=== PATIENT | female | born 1960 | race Caucasian/White ===

== ENCOUNTER 2017-02-16 11:41 | Emergency (ER) | payer OTHER ==
[~2017-02-16] VITALS: Ht 157.5 cm; Wt 124.7 kg
[~2017-02-16 11:41] MED LIST: ALBU90OI INH; CODGUAEL PO; Lisinopril2.5 MG; METF500; NEOPOLHCSU LEFTEAR; Zithromax250 MG PO
[2017-02-16] MEDS ORDERED: IBUP600 PO (12:46)
[2017-02-16] MEDS ORDERED: Norco 5-325 Ta1 EACH PO (12:46)
== END 2017-02-16 12:53 | disposition home or self-care (01) ==
LOC: ER 11:41
DX: M10.9 Gout, unspecified (principal); F17.200 Nicotine dependence, unspecified, uncomplicated; E11.9 Type 2 diabetes mellitus without complications; I10 Essential (primary) hypertension; J44.9 Chronic obstructive pulmonary disease, unspecified; Z91.048 Other nonmedicinal substance allergy status
CPT/HCPCS: 29125; 73130; 99283

== ENCOUNTER → 2017-06-23 | Outpatient (CLI) | payer MEDICARE, OTHER ==
[~2017-06-23] MED LIST changes: +IBUP600 PO; +Norco 5-325 Ta1 EACH PO
[2017-06-23 19:16] LABS: Alanine Aminotransfer (ALT/SGP 25 U/L (12-78); Albumin, Blood 3.4 g/dL (3.4-5.0); Alk Phos 80 U/L (50-136); Anion Gap 5 mmol/L (6-16); Aspartate Aminotrans (AST/SGOT 17 U/L (12-37); Bilirubin, Total 0.4 mg/dL (0.1-1.0); Blood Urea Nitrogen 13 mg/dL (8-24); Bun/Creatinine Ratio 19.3 (12.0-20.0); CO2, Blood 28 mmol/L (21-32); Calcium, Blood 8.9 mg/dL (8.5-10.1); Chloride, Blood 109 mmol/L (98-108); Creatinine, Blood 0.68 mg/dL (0.40-1.00); Globulin, Blood 3.3 g/dL (2.2-4.0); Glomerular Filtration Rate >60 (60-); Glucose, Blood 240 mg/dL (70-99); Potassium, Blood 4.3 mmol/L (3.5-5.5); Sodium, Blood 142 mmol/L (136-145); Total Protein, Blood 6.7 g/dL (6.4-8.2)
[2017-06-25 10:36] LABS: Albumin 3.3 g/dL (3.5-5.0); Albumin 50.4 % (45.0-80.0); Protein, Total 6.5 g/dL (6.2-8.2)
== END | disposition home or self-care (01) ==
LOC: LAB SHORT 12:21 → LAB 12:21
PROVIDERS: Nurse Practitioner Adult Health
DX: E11.9 Type 2 diabetes mellitus without complications (principal); E88.09 Other disorders of plasma-protein metabolism, not elsewhere classified; I10 Essential (primary) hypertension
CPT/HCPCS: 80053; 82043; 84165; 84166

== ENCOUNTER 2018-05-19 11:53 | Emergency (ER) | payer MEDICARE ==
[~2018-05-19] VITALS: Ht 157.5 cm; Wt 122.0 kg
[2018-05-19] MEDS ORDERED: Ultram50 MG PO (13:12)
== END 2018-05-19 13:54 | disposition home or self-care (01) ==
LOC: ER 11:53
DX: S42.211A Unspecified displaced fracture of surgical neck of right humerus, initial encounter for closed fracture (principal); S42.251A Displaced fracture of greater tuberosity of right humerus, initial encounter for closed fracture; E11.9 Type 2 diabetes mellitus without complications; I10 Essential (primary) hypertension; J44.9 Chronic obstructive pulmonary disease, unspecified; F17.210 Nicotine dependence, cigarettes, uncomplicated; Z79.899 Other long term (current) drug therapy; Z79.84 Long term (current) use of oral hypoglycemic drugs; W01.0XXA Fall on same level from slipping, tripping and stumbling without subsequent striking against object, initial encounter
CPT/HCPCS: 73030; 73060; 99283-25

== ENCOUNTER 2018-05-28 19:38 | Emergency (ER) | payer MEDICARE ==
[~2018-05-28] VITALS: Ht 157.5 cm; Wt 122.5 kg
[~2018-05-28 19:38] MED LIST changes: +Ultram50 MG PO
[2018-05-28 20:08] LABS: BASOPHILS ABSOLUTE AUTO 0.07 K/mm3 (0.00-0.23); BASOPHILS PERCENT AUTO 1 % (0-2); EOSINOPHILS ABSOLUTE AUTO 0.22 K/mm3 (0.00-0.68); EOSINOPHILS PERCENT AUTO 2 % (0-6); Hemoglobin 13.5 g/dL (11.5-16.0); IMMATURE GRAN ABSOLUTE AUTO 0.01 K/mm3 (0.00-0.10); IMMATURE GRAN PERCENT AUTO 0 % (0-1); LYMPHOCYTES ABSOLUTE AUTO 2.09 K/mm3 (0.84-5.20); LYMPHOCYTES PERCENT AUTO 20 % (21-46); MONOCYTES ABSOLUTE AUTO 0.65 K/mm3 (0.16-1.47); MONOCYTES PERCENT AUTO 6 % (4-13); Mean Corpuscular HGB Conc 31.4 g/dL (31.5-36.5); Mean Corpuscular Volume 89 fL (80-100); Mean Platelet Volume 11.1 fL (9.1-12.4); NEUTROPHILS ABSOLUTE AUTO 7.68 K/mm3 (1.96-9.15); NEUTROPHILS PERCENT AUTO 72 % (41-73); Platelet Count 352 K/mm3 (150-400); RDW Coefficient Variation 13.2 % (11.7-14.2); RDW Standard Deviation 43.3 fL (35.1-46.3); Red Blood Cell Count 4.82 M/mm3 (3.80-5.20); White Blood Cell Count 10.72 K/mm3 (4.00-11.30)
[2018-05-28 20:29] LABS: Alanine Aminotransfer (ALT/SGP 30 U/L (12-78); Albumin/Globulin Ratio 0.7 (0.8-1.8); Alk Phos 103 U/L (50-136); Anion Gap 10 mmol/L (6-16); Aspartate Aminotrans (AST/SGOT 18 U/L (12-37); Bilirubin, Total 0.3 mg/dL (0.1-1.0); Blood Urea Nitrogen 5 mg/dL (8-24); Bun/Creatinine Ratio 11.5 (12.0-20.0); CO2, Blood 28 mmol/L (21-32); Calcium, Blood 9.2 mg/dL (8.5-10.1); Chloride, Blood 101 mmol/L (98-108); Creatinine, Blood 0.44 mg/dL (0.40-1.00); Globulin, Blood 4.5 g/dL (2.2-4.0); Glomerular Filtration Rate >60 (60-); Glucose, Blood 355 mg/dL (70-99); Potassium, Blood 4.4 mmol/L (3.5-5.5); Sodium, Blood 139 mmol/L (136-145); Total Protein, Blood 7.5 g/dL (6.4-8.2); Troponin I <0.015 ng/mL (0.000-0.040)
[2018-05-28] MEDS ORDERED: Metformin HCl1000 MG PO (20:29)
[2018-05-28] MEDS ORDERED: Zestril40 MG PO (20:29)
[2018-05-28] MEDS ORDERED: GLIP5 PO (20:31)
[2018-05-28] MEDS ORDERED: BUSP10 PO (20:31)
[2018-05-28] MEDS ORDERED: BUDE10.22 INH (20:31)
[2018-05-28] MEDS ORDERED: TIOT18 INH (20:31)
[2018-05-28] MEDS ORDERED: Zocor20 MG PO (20:31)
[2018-05-28] MEDS ORDERED: Isosorbide Mono30 MG PO (20:33)
[2018-05-28] MEDS ORDERED: HYDCHL25 PO (20:33)
== END 2018-05-28 22:56 | disposition home or self-care (01) ==
LOC: ER 19:38
PROVIDERS: Physician Assistant
DX: S20.211A Contusion of right front wall of thorax, initial encounter (principal); B37.2 Candidiasis of skin and nail; W19.XXXA Unspecified fall, initial encounter; Z79.899 Other long term (current) drug therapy; Z79.84 Long term (current) use of oral hypoglycemic drugs; E11.9 Type 2 diabetes mellitus without complications; I10 Essential (primary) hypertension; J44.9 Chronic obstructive pulmonary disease, unspecified; F17.210 Nicotine dependence, cigarettes, uncomplicated
CPT/HCPCS: 71046; 80053; 84484; 85025; 93005; 93010; 96374; 99285-25; J1885

== ENCOUNTER 2018-09-10 21:47 | Inpatient (IN) | payer MEDICARE ==
[~2018-09-10] VITALS: Ht 157.5 cm; Wt 95.2 kg
[~2018-09-10 21:47] MED LIST changes: +BUDE10.22 INH; +BUSP10 PO; +GLIP5 PO; +HYDCHL25 PO; +Isosorbide Mono30 MG PO; +Metformin HCl1000 MG PO; +TIOT18 INH; +Zestril40 MG PO; +Zocor20 MG PO
[2018-09-10 22:57] LABS: Hematocrit 25.6 % (33.0-51.0); Hemoglobin 7.7 g/dL (11.5-16.0); Mean Corpuscular HGB 24.5 pg (26.0-34.0); Mean Corpuscular HGB Conc 30.1 g/dL (31.5-36.5); Mean Corpuscular Volume 82 fL (80-100); Mean Platelet Volume 12.6 fL (9.1-12.4); NRBC ABSOLUTE 0.32 K/mm3 (0.00-0.02); NRBC Auto 0.7 /100 WBC (0.0-0.2); Platelet Count 384 K/mm3 (150-400); RDW Coefficient Variation 18.6 % (11.7-14.2); RDW Standard Deviation 53.2 fL (35.1-46.3); Red Blood Cell Count 3.14 M/mm3 (3.80-5.20); White Blood Cell Count 46.21 K/mm3 (4.00-11.30)
[2018-09-10 23:01] LABS: BAND PERCENT MAN 17 % (0-8); BASOPHILS PERCENT MAN 0 % (0-2); EOSINOPHILS PERCENT MAN 0 % (0-6); LYMPHOCYTES ABSOLUTE MAN 1.38 K/mm3 (0.84-5.20); LYMPHOCYTES PERCENT MAN 3 % (21-46); METAMYELOCYTE ABSOLUTE MAN 0.92 K/mm3 (0.00-0.00); METAMYELOCYTE PERCENT MAN 2 % (0-0); MONOCYTES ABSOLUTE MAN 0.92 K/mm3 (0.16-1.47); MONOCYTES PERCENT MAN 2 % (4-13); NEUTROPHILS ABSOLUTE MAN 42.97 K/mm3 (1.96-9.15); SEG NEUTROPHILS PERCENT MAN 76 % (41-73); TOTAL CELLS COUNTED 100
[2018-09-10 23:08] LABS: Alanine Aminotransfer (ALT/SGP 14 U/L (12-78); Albumin, Blood 1.8 g/dL (3.4-5.0); Albumin/Globulin Ratio 0.4 (0.8-1.8); Alk Phos 189 U/L (50-136); Anion Gap 13 mmol/L (6-16); Aspartate Aminotrans (AST/SGOT 50 U/L (12-37); Bilirubin, Total 6.6 mg/dL (0.1-1.0); Blood Urea Nitrogen 36 mg/dL (8-24); Bun/Creatinine Ratio 53.3 (12.0-20.0); CO2, Blood 23 mmol/L (21-32); Calcium, Blood 8.9 mg/dL (8.5-10.1); Chloride, Blood 86 mmol/L (98-108); Creatinine, Blood 0.68 mg/dL (0.40-1.00); Glomerular Filtration Rate >60 (60-); Glucose, Blood 783 mg/dL (70-99); Potassium, Blood 4.4 mmol/L (3.5-5.5); Sodium, Blood 122 mmol/L (136-145); Total Protein, Blood 6.8 g/dL (6.4-8.2)
[2018-09-11 00:33] LABS: Source, Urine Clean Catch
[2018-09-11 00:38] LABS: Bilirubin, Urine Neg (Neg); Blood, Urine 4+ (Neg); Glucose Qualitative, Urine 4+ (Neg); Ketones, Urine 1+ (Neg); Leukocyte Esterase, Urine Neg (Neg); Nitrite, Urine Neg (Neg); Protein, Urine 2+ (Neg); Specific Gravity, Urine 1.005 (1.003-1.022); Urobilinogen, Urine 2+ (Normal)
[2018-09-11 00:40] LABS: Appearance, Urine Clear (Clear); Color, Urine Yellow (P-Yellow)
[2018-09-11 00:59] LABS: Bacteria Rare /hpf; Red Blood Cells, Urine 0-2 /hpf (0-2); Squamous Epithelial Cells Few /hpf (Few); White Blood Cells, Urine Not Seen /hpf (0-5); Yeast/Fungi Urine Mod /hpf
[2018-09-11 01:25] LABS: Glucose, Blood 752 mg/dL (70-99)
[2018-09-11 04:05] LABS: Glucose, Blood 577 mg/dL (70-99)
[2018-09-11 09:11] LABS: International Normalized Ratio 1.22; Prothrombin Time Results 12.7 Sec (9.7-11.5)
[2018-09-11 09:16] LABS: Glucose, Blood 416 mg/dL (70-99)
[2018-09-11 09:20] LABS: Alanine Aminotransfer (ALT/SGP 15 U/L (12-78); Albumin, Blood 2.1 g/dL (3.4-5.0); Albumin/Globulin Ratio 0.5 (0.8-1.8); Alk Phos 163 U/L (50-136); Aspartate Aminotrans (AST/SGOT 74 U/L (12-37); Bilirubin, Total 11.5 mg/dL (0.1-1.0); Blood Urea Nitrogen 37 mg/dL (8-24); Bun/Creatinine Ratio 67.6 (12.0-20.0); CO2, Blood 27 mmol/L (21-32); Calcium, Blood 8.7 mg/dL (8.5-10.1); Chloride, Blood 99 mmol/L (98-108); Creatinine, Blood 0.55 mg/dL (0.40-1.00); Globulin, Blood 4.3 g/dL (2.2-4.0); Glomerular Filtration Rate >60 (60-); Glucose, Blood 402 mg/dL (70-99); Potassium, Blood 3.8 mmol/L (3.5-5.5); Total Protein, Blood 6.4 g/dL (6.4-8.2)
[2018-09-11 09:21] LABS: Anion Gap 7 mmol/L (6-16)
[2018-09-11 09:22] LABS: Sodium, Blood 133 mmol/L (136-145)
[2018-09-11 09:32] LABS: Hematocrit 19.9 % (33.0-51.0); Hemoglobin 6.4 g/dL (11.5-16.0); Mean Corpuscular HGB 26.7 pg (26.0-34.0); Mean Corpuscular HGB Conc 32.2 g/dL (31.5-36.5); Mean Corpuscular Volume 83 fL (80-100); NRBC ABSOLUTE 0.29 K/mm3 (0.00-0.02); NRBC Auto 0.7 /100 WBC (0.0-0.2); RDW Coefficient Variation 18.2 % (11.7-14.2); RDW Standard Deviation 52.8 fL (35.1-46.3); White Blood Cell Count 40.05 K/mm3 (4.00-11.30)
[2018-09-11 09:58] LABS: Mean Platelet Volume 12.4 fL (9.1-12.4); Platelet Count 322 K/mm3 (150-400)
[2018-09-11 10:06] LABS: Percent Saturation 116.4 % (15.0-50.0)
--- NOTE | 2018-09-11 10:30 | NUR ---
PT NEW ADMIT FROM ED. ON BIPAP WITH 5L BLEED IN, SATTING MID90S. NSR ON TELE. INSULIN GTT AT 8 UNITS/HR. BLOOD SUGARS IN 300S AT THIS TIME. PT IS ALERT AND ORIENTED, COOPERATIVE. AMBULATORY WITH ONE ASSIST. NO FURTHER NEEDS AT THIS TIME.
--- NOTE | 2018-09-11 11:44 | NUR ---
DR TABOR NOTIFIED OF PT'S RECENT LAB RESULTS. ALSO MADE AWARE OF BLOOD IN URINE. ALSO NOTIFIED THAT PT HAS NOT SUBMITTED MEDS TO PHARMACY IN 18 MONTHS AND THAT SHE STATES SHE HASN'T TAKEN REGULAR MEDS SINCE APRIL BECAUSE OF COST. PT TOOK 10 MINUTE BREAK FROM BIPAP AND WAS ON NC AT 5L. STARTED TO DESAT INTO MID 80S WITH THIS SO SWITCHED BACK TO MASK. PT C/O DRY MOUTH. DISCUSSED WITH DR TABOR WHO ORDERED DIET. RN AT BEDSIDE GETTING HEALTH HISTORY AT THIS TIME.
--- NOTE | 2018-09-11 12:33 | NUR ---
ECHOCARDIOGRAM COMPLETE
[2018-09-11 14:30] LABS: Source, Urine Clean Catch
[2018-09-11 14:42] LABS: Appearance, Urine Hazy (Clear); Blood, Urine 5+ (Neg); Color, Urine Amber (P-Yellow); Glucose Qualitative, Urine 3+ (Neg); Ketones, Urine 1+ (Neg); Leukocyte Esterase, Urine 1+ (Neg); Nitrite, Urine Neg (Neg); Protein, Urine 4+ (Neg); Urobilinogen, Urine 4+ (Normal)
--- NOTE | 2018-09-11 14:45 | NUR ---
REPORT GIVEN TO NABOR COWART. PT SITTING IN BED ON 5L, SATTING MID 90S. TOLERATED LUNCH AND LANTUS PER ORDERS. SEE LABS. NS AT 125/HR. HR SINUS TACH 101. NO FURTHER NEEDS OR CONCERNS AT THIS TIME.
[2018-09-11 14:46] LABS: Anion Gap 11 mmol/L (6-16); Blood Urea Nitrogen 38 mg/dL (8-24); Bun/Creatinine Ratio 72.2 (12.0-20.0); CO2, Blood 23 mmol/L (21-32); Calcium, Blood 8.8 mg/dL (8.5-10.1); Chloride, Blood 101 mmol/L (98-108); Creatinine, Blood 0.53 mg/dL (0.40-1.00); Glomerular Filtration Rate >60 (60-); Glucose, Blood 328 mg/dL (70-99); Potassium, Blood 4.1 mmol/L (3.5-5.5); Sodium, Blood 135 mmol/L (136-145)
[2018-09-11 14:47] LABS: Bilirubin, Urine 3+ (Neg)
[2018-09-11 14:49] LABS: Bacteria Mod /hpf; Mucus Heavy (0-Heavy); Yeast/Fungi Urine Few /hpf
[2018-09-11 14:50] LABS: Granular Casts 0-2 /lpf (0); Hyaline Casts 0-2 /lpf (0-2); Renal Epithelial Few /hpf (0-Rare); Squamous Epithelial Cells Many /hpf (Few); Transitional Epithelial Cells Many /hpf (0-Rare)
--- NOTE | 2018-09-11 14:54 | NUR ---
ASSUMED CARE: RECEIVED REPORT FROM SHANNAN DE LEÓN RN AT THIS TIME. NO DISTRESS NOTED WITH PT. PT IS CURRENTLY ON BIPAP WITH A NASEL MASK. PT STATES DESIRE TO SLEEP. REQUESTS TO BE LEFT ALONE. WILL CONTINUE TO MONITOR AND ASSESS FURTHER.
[2018-09-11 15:31] LABS: Adenovirus Not Detected (NOT DETECT); Bordetella pertussis Not Detected (NOT DETECT); Chlamydophila pneumoniae Not Detected (NOT DETECT); Coronavirus 229E Not Detected (NOT DETECT); Coronavirus HKU1 Not Detected (NOT DETECT); Coronavirus NL63 Not Detected (NOT DETECT); Coronavirus OC43 Not Detected (NOT DETECT); Human Metapneumovirus Not Detected (NOT DETECT); Human Rhinovirus/Enterovirus Not Detected (NOT DETECT); Influenza A Not Detected (NOT DETECT); Influenza A/2009-H1 Not Detected (NOT DETECT); Influenza A/H1 Not Detected (NOT DETECT); Influenza A/H3 Not Detected (NOT DETECT); Influenza B Not Detected (NOT DETECT); Mycoplasma pneumoniae Not Detected (NOT DETECT); Parainfluenza Virus 1 Not Detected (NOT DETECT); Parainfluenza Virus 2 Not Detected (NOT DETECT); Parainfluenza Virus 3 Not Detected (NOT DETECT); Parainfluenza Virus 4 Not Detected (NOT DETECT); Respiratory Syncytial Virus Not Detected (NOT DETECT)
--- NOTE | 2018-09-11 17:02 | NUR ---
ELAVATED GLUCOSE LEVEL: CALLED AND NOTIFIED DR TABOR OF PT BLOOD SUGAR OF 458 AND COVERING PER ORDERS. RECEIVED NEW ORDER TO ADMINISTER 20 UNITS OF LANSUS NOW. ALSO RECEIVED ORDERS FOR PT NICOTINE CRAVINGS.
--- NOTE | 2018-09-11 18:50 | NUR ---
SHIFT SUMMARY: NO ACUTE DISTRESS NOTED SINCE ASSUMING CARE. PT HAS BEEN UP TO BSC SEVERAL TIMES WITH APPROX 200ML OUT EACH OF DARK CORNELIO/ORANGE COLOR URINE THAT APPEARS TO BE CLOUDY. SOME INCONTINENCE NOTED, ATTENDS IN PLACE. PT HAS BEEN WEARING HER BIPAP MOST OF THE TIME SINCE ASSUMING CARE, SOME SATURATIONS IN THE MID 80'S AT TIMES WITH AMBULATION OR WHEN NOT WEARING HER BIPAP, BUT PT TOLELRATED WELL AND SATS CAME UP QUICKLY. PT STATES FEELING FATIGUED, BUT DENIES ANY LIGHTHEADEDNESS OR DIZZYNESS. WILL CONTINUE TO MONIOR AND REPORT TO ONCOMING RN.
[2018-09-11 21:18] LABS: Anion Gap 10 mmol/L (6-16); Blood Urea Nitrogen 48 mg/dL (8-24); Bun/Creatinine Ratio 72.8 (12.0-20.0); CO2, Blood 24 mmol/L (21-32); Calcium, Blood 8.3 mg/dL (8.5-10.1); Chloride, Blood 98 mmol/L (98-108); Creatinine, Blood 0.66 mg/dL (0.40-1.00); Glomerular Filtration Rate >60 (60-); Glucose, Blood 554 mg/dL (70-99); Sodium, Blood 132 mmol/L (136-145)
--- NOTE | 2018-09-12 01:39 | NUR ---
START OF SHIFT: PT DROWSY MOST OF SHIFT GETTING UP TO USE THE BSC FREQUENTLY. PT WITH PERIODS WHERE PT IS STOIC AND DELAYED IN ANSWERING BUT WILL BECOME MORE INTERACTIVE AND ORIENTED WHEN STIMULATED TO. PT CONTINUES TO HAVE CORNELIO/ORANGE/RED URINE WITH ABOUT 100cc OUT EACH TIME. PT WITH INCONTINENCE X1 FILLING MOST OF HER ATTENDS. PT REQUESTING TO WEAR HER BIPAP EACH TIME BACK INTO BED. PT PUSHES OFF HER MASK IN HER SLEEP AND WILL DESAT INTO THE 70'S. SATS QUICKLY RETURNS INTO THE 90'S ONCE BIPAP BACK ON. BLOOD GLUCOSE: AT BLOOD GLUCOSE CHECK BG 554. CALL TO DR. MENJIVAR WITH NEW ORDER FOR ONE-TIME DOSE HUMALOG 22u AND NEW ORDER FOR HUMALOG 7u IN ADDITION TO HSS BEFORE EACH MEAL.
[2018-09-12 02:32] LABS: Anion Gap 5 mmol/L (6-16); Blood Urea Nitrogen 49 mg/dL (8-24); Bun/Creatinine Ratio 74.6 (12.0-20.0); CO2, Blood 25 mmol/L (21-32); Calcium, Blood 8.2 mg/dL (8.5-10.1); Chloride, Blood 101 mmol/L (98-108); Creatinine, Blood 0.66 mg/dL (0.40-1.00); Glomerular Filtration Rate >60 (60-); Glucose, Blood 484 mg/dL (70-99); Potassium, Blood 4.3 mmol/L (3.5-5.5); Sodium, Blood 131 mmol/L (136-145)
[2018-09-12 02:34] LABS: Alanine Aminotransfer (ALT/SGP 21 U/L (12-78); Albumin, Blood 1.8 g/dL (3.4-5.0); Albumin/Globulin Ratio 0.4 (0.8-1.8); Alk Phos 170 U/L (50-136); Anion Gap 6 mmol/L (6-16); Aspartate Aminotrans (AST/SGOT 118 U/L (12-37); Bilirubin, Total 7.1 mg/dL (0.1-1.0); Blood Urea Nitrogen 48 mg/dL (8-24); Bun/Creatinine Ratio 69.1 (12.0-20.0); CO2, Blood 26 mmol/L (21-32); Calcium, Blood 8.2 mg/dL (8.5-10.1); Chloride, Blood 101 mmol/L (98-108); Globulin, Blood 4.5 g/dL (2.2-4.0); Glomerular Filtration Rate >60 (60-); Glucose, Blood 478 mg/dL (70-99); Potassium, Blood 4.3 mmol/L (3.5-5.5); Sodium, Blood 133 mmol/L (136-145); Total Protein, Blood 6.3 g/dL (6.4-8.2)
[2018-09-12 02:38] LABS: Mean Corpuscular HGB 26.5 pg (26.0-34.0); Mean Corpuscular HGB Conc 32.3 g/dL (31.5-36.5); Mean Corpuscular Volume 82 fL (80-100); NRBC ABSOLUTE 0.36 K/mm3 (0.00-0.02); NRBC Auto 0.7 /100 WBC (0.0-0.2); Platelet Count 336 K/mm3 (150-400); RDW Coefficient Variation 19.4 % (11.7-14.2); RDW Standard Deviation 53.6 fL (35.1-46.3); Red Blood Cell Count 1.96 M/mm3 (3.80-5.20)
[2018-09-12 02:40] LABS: Hematocrit 16.1 % (33.0-51.0); Hemoglobin 5.2 g/dL (11.5-16.0); White Blood Cell Count 53.16 K/mm3 (4.00-11.30)
[2018-09-12 03:10] LABS: BAND PERCENT MAN 13 % (0-8); BASOPHILS PERCENT MAN 0 % (0-2); EOSINOPHILS PERCENT MAN 0 % (0-6); LYMPHOCYTES ABSOLUTE MAN 5.31 K/mm3 (0.84-5.20); LYMPHOCYTES PERCENT MAN 10 % (21-46); METAMYELOCYTE ABSOLUTE MAN 1.06 K/mm3 (0.00-0.00); METAMYELOCYTE PERCENT MAN 2 % (0-0); MONOCYTES ABSOLUTE MAN 0.53 K/mm3 (0.16-1.47); MONOCYTES PERCENT MAN 1 % (4-13); MYELOCYTE ABSOLUTE MAN 0.53 K/mm3 (0.00-0.00); MYELOCYTE PERCENT MAN 1 % (0-0); NEUTROPHILS ABSOLUTE MAN 45.71 K/mm3 (1.96-9.15); SEG NEUTROPHILS PERCENT MAN 73 % (41-73); TOTAL CELLS COUNTED 100
--- NOTE | 2018-09-12 06:37 | NUR ---
END OF SHIFT: PT WITH CRITICAL LABS CALLED TO DR. SANZ, SEE NOTE. PT AWAKENED AND HAD TO HAVE ALL IV ACCESS REPLACED POSSIBLEY R/T PT ROLLING AND THRASHING T/O NOC IN BED. PT AWAKE AND VERY PLEASANT DURING IV INSERT PROCESS AND HAS REMAINED AWAKE SINCE THEN. PT UP TO BSC SEVERAL TIMES T/O NOC AND IS CURRENLTY SITTING UP IN A RECLINER CHAIR. PT FOLLOWING DIRECTIONS WELL AND USING CALL LIGHT.
[2018-09-12 07:06] LABS: HBSAG SCREEN Negative (Negative); HEP B CORE AB, TOT Negative (Negative); HEP C VIRUS AB <0.1 (0.0-0.9)
[2018-09-12 08:35] LABS: Anion Gap 10 mmol/L (6-16); Blood Urea Nitrogen 46 mg/dL (8-24); Bun/Creatinine Ratio 72.7 (12.0-20.0); CO2, Blood 21 mmol/L (21-32); Calcium, Blood 8.1 mg/dL (8.5-10.1); Chloride, Blood 100 mmol/L (98-108); Creatinine, Blood 0.63 mg/dL (0.40-1.00); Glomerular Filtration Rate >60 (60-); Glucose, Blood 489 mg/dL (70-99); Potassium, Blood 4.8 mmol/L (3.5-5.5); Sodium, Blood 131 mmol/L (136-145)
--- NOTE | 2018-09-12 10:19 | NUR ---
ELAVATED GLUCOSE & HGB: PT BLOOD SUGAR WAS ELAVATED TO 458 THIS MORNING CALLED AND NOTIFIED DR TABOR OF LAB VALUE AND MEDICATIONS GIVEN PRIOR TO CALLING. RECEIVED NEW ORDERS. UPDATED ON PT RECEIVING 1 UNIT OF BLOOD FOR A CRITICAL HGB OF 5.2 AND RECEIVED NEW ORDERS FOR A REPEAT H&H. WILL CONTINUE TO MONITOR AND ASSESS FURTHER.
[2018-09-12 11:08] LABS: Hematocrit 20.3 % (33.0-51.0); Hemoglobin 6.5 g/dL (11.5-16.0)
[2018-09-12 12:40] LABS: Glucose (ISTAT POC) 557 mg/dL (70-99)
--- NOTE | 2018-09-12 12:42 | NUR ---
HIGH GLUCOSE: PT BLOOD SUGAR NOTED AT 557. CALLED AND LEFT MESSAGE FOR DR TABOR.
[2018-09-12 13:02] LABS: Glucose, Blood 576 mg/dL (70-99)
[2018-09-12 13:07] LABS: Alanine Aminotransfer (ALT/SGP 21 U/L (12-78); Albumin, Blood 1.7 g/dL (3.4-5.0); Albumin/Globulin Ratio 0.4 (0.8-1.8); Alk Phos 183 U/L (50-136); Anion Gap 11 mmol/L (6-16); Aspartate Aminotrans (AST/SGOT 116 U/L (12-37); Bilirubin, Total 5.1 mg/dL (0.1-1.0); Blood Urea Nitrogen 51 mg/dL (8-24); Bun/Creatinine Ratio 71.1 (12.0-20.0); CO2, Blood 22 mmol/L (21-32); Calcium, Blood 7.8 mg/dL (8.5-10.1); Chloride, Blood 99 mmol/L (98-108); Creatinine, Blood 0.72 mg/dL (0.40-1.00); Globulin, Blood 4.3 g/dL (2.2-4.0); Glomerular Filtration Rate >60 (60-); Glucose, Blood 568 mg/dL (70-99); Potassium, Blood 4.1 mmol/L (3.5-5.5); Sodium, Blood 132 mmol/L (136-145)
--- NOTE | 2018-09-12 14:00 | NUR ---
CRITICAL CALL BACK: CALLED DR TABOR ONCE AGAIN REGUARDING ELAVATED BLOOD SUGAR D/T NOT RECEIVING A CALL BACK. DR TABOR HAD ALREADY PLACED NEW ORDERS IN THE COMPUTER. ADMINISTERED NEW ORDERS OF HUMOLOG & LANTUS.
--- NOTE | 2018-09-12 14:12 | NUR ---
FAMILY: UPDATED SISTER AT THIS TIME. SISTER REPORTS PT C/O TAIL BONE AREA PAIN FOR THE LAST 3 YEARS.
[2018-09-12 15:25] LABS: Glucose (ISTAT POC) 536 mg/dL (70-99)
--- NOTE | 2018-09-12 17:00 | NUR ---
UPDATE: CALLED DR TABOR TO DISCUSS PLAN OF CARE FOR THE NIGHT. REPORTED TRENDING BLOOD SUGARS AND LACK OF REDUCTION IN GLUCOSE LEVELS WITH ALL THE INSULIN GIVEN. RECEIVED ORDER TO START IV INSULIN DRIP. CHEM BG'S WILL BE CHECKED Q1HR. DISCUSSED PT LOW TEMP AND LACK OF BEING ABLE TO TOLLERATE THE INCREASED HEAT IN THE ROOM. NO NEW ORDERS WILL CONTINUE TO MONITOR. ORDERS TO DRAW LABS TO CHECK THYROID HORMONES. WILL CONTINUE TO MONITOR AND ASSESS FUTHER.
[2018-09-12 18:30] LABS: Glucose (ISTAT POC) 475 mg/dL (70-99)
--- NOTE | 2018-09-12 18:45 | NUR ---
SHIFT SUMMARY: GLUCOSE: BLOOD SUGARS HAVE BEEN ELAVATED T/O THE DAY CREEPING UP SLOWLY ALTHOUGH RECEIVING APPROX 75 UNITS LANTUS, AND APPROX 90 UNITS OF HUMALOG (SEE MAR FOR EXACT UNITS GIVEN) AND BLOOD SUGARS HAVE NOT BEEN BELOW 400, BUT HAVE BEEN HIGH 557 EVEN AFTER RECEIVING MOST OF THE INSULIN. INSULIN DRIP STARTED AT 1820 WITH A RATE OF 5 UNITS PER HOUR. BLOOD: PT RECEIVED A UNIT OF PRBC THIS SHIFT D/T HGB ONLY COMING UP TO 6.5 @ 1023. CURRENTLY AWAITING REPEAT H&H DRAWN AFTER 1 UNIT OF BLOOD. PT TEMP HAS BEEN LOW 95 DEGREES TURNED HEAT UP IN THE ROOM, BUT PT FELT VERY HOT AND COULD NOT HANDLE THE HEAT BEING UP IN THE ROOM OR A BLANKET ON. AFTER 1 UNIT OF BLOOD TEMP WAS NOTED TO COME UP TO 97.6.
[2018-09-12 18:53] LABS: Glucose, Blood 495 mg/dL (70-99)
[2018-09-12 19:08] LABS: Thyroxine (T4) 4.6 ug/dL (4.8-13.9)
[2018-09-12 19:18] LABS: Triiodothyronine, Free <0.50 pg/mL (2.18-3.98)
--- NOTE | 2018-09-12 19:25 | NUR ---
H&H: HGB CAME BACK AT 11.4, REDRAWN ORDERED TO VERAFY LABS AFTER ONLY RECEIVING ONE UNIT OF BLOOD AND PREVIOUSLY BEING NOTED AT 6.5
--- NOTE | 2018-09-12 19:26 | NUR ---
FAMILY: SISTER CALLED AND NOTIFIED THIS RN. THAT THE DR DID NOT CALL TO UPDATE HER ON HER SISTER AND THAT SHE WAS UNABLE TO GET SOME QUESTIONS ANSWERED. STATES CONCERNS WITH THE LIVER. THIS RN ATTEMPTED TO EDUCATE SISTER ON LIVER LAB LEVELS STARTING TO TREND IN THE RIGHT DIRECTION. UPDATED ON CURRENT PLAN OF CARE AND LABS BEING DRAWN.
[2018-09-12 19:44] LABS: Hematocrit 21.2 % (33.0-51.0)
[2018-09-12 19:45] LABS: Hemoglobin 7.1 g/dL (11.5-16.0)
--- NOTE | 2018-09-12 21:55 | NUR ---
CBG IS 444, INSULIN TITRATED TO 5UNITS/HR. WILL CONTINUE TO MONITOR,
--- NOTE | 2018-09-12 22:15 | NUR ---
ASSISTED TO BSC AND BACK TO BED, TOLERATED WELL. 200ML CLEAR CONCENTRATED CORNELIO URINE NOTED. WILL CONTINUE TO MONITOR.
--- NOTE | 2018-09-13 02:02 | NUR ---
PT CALLED OUT STATING THAT SHE NEEDED TO GO TO THE BATHROOM. AFTER NURSING PREPARED BSC, PT STATES THAT SHE HAD ALREADY VOIDED IN HER ATTENDS. PERICARE PROVIDED, AND NEW ATTENDS PLACED, TOLERATED WELL. WILL CONTINUE TO MONITOR.
[2018-09-13 04:17] LABS: Free Thyroxine 0.65 ng/dL (0.70-1.60)
[2018-09-13 04:20] LABS: Thyroid Stimulating Hormone 2.91 uIU/mL (0.360-4.800); Triiodothyronine, Free 0.59 pg/mL (2.18-3.98)
[2018-09-13 05:43] LABS: Stool Occult Blood Guaiac 1 Neg (Neg)
[2018-09-13 08:56] LABS: Alanine Aminotransfer (ALT/SGP 17 U/L (12-78); Albumin, Blood 1.6 g/dL (3.4-5.0); Albumin/Globulin Ratio 0.4 (0.8-1.8); Alk Phos 171 U/L (50-136); Anion Gap 8 mmol/L (6-16); Aspartate Aminotrans (AST/SGOT 52 U/L (12-37); Bilirubin, Total 2.4 mg/dL (0.1-1.0); Blood Urea Nitrogen 33 mg/dL (8-24); Bun/Creatinine Ratio 55.9 (12.0-20.0); CO2, Blood 25 mmol/L (21-32); Calcium, Blood 8.1 mg/dL (8.5-10.1); Chloride, Blood 104 mmol/L (98-108); Creatinine, Blood 0.59 mg/dL (0.40-1.00); Glomerular Filtration Rate >60 (60-); Glucose, Blood 228 mg/dL (70-99); Potassium, Blood 3.5 mmol/L (3.5-5.5); Sodium, Blood 137 mmol/L (136-145); Total Protein, Blood 5.6 g/dL (6.4-8.2)
[2018-09-13 09:13] LABS: Hemoglobin 6.1 g/dL (11.5-16.0); Mean Corpuscular HGB 30.2 pg (26.0-34.0); Mean Corpuscular HGB Conc 35.5 g/dL (31.5-36.5); NRBC Auto 1.5 /100 WBC (0.0-0.2); Platelet Count 357 K/mm3 (150-400); RDW Coefficient Variation 18.5 % (11.7-14.2); Red Blood Cell Count 2.02 M/mm3 (3.80-5.20)
[2018-09-13 09:15] LABS: Mean Corpuscular Volume 85 fL (80-100)
[2018-09-13 09:21] LABS: Hematocrit 17.2 % (33.0-51.0); White Blood Cell Count 59.16 K/mm3 (4.00-11.30)
[2018-09-13 09:54] LABS: BAND PERCENT MAN 12 % (0-8); BASOPHILS PERCENT MAN 0 % (0-2); EOSINOPHILS ABSOLUTE MAN 0.59 K/mm3 (0.00-0.68); EOSINOPHILS PERCENT MAN 1 % (0-6); LYMPHOCYTES ABSOLUTE MAN 1.77 K/mm3 (0.84-5.20); LYMPHOCYTES PERCENT MAN 3 % (21-46); MONOCYTES PERCENT MAN 0 % (4-13); MYELOCYTE ABSOLUTE MAN 0.59 K/mm3 (0.00-0.00); MYELOCYTE PERCENT MAN 1 % (0-0); SEG NEUTROPHILS PERCENT MAN 83 % (41-73); TOTAL CELLS COUNTED 100
--- NOTE | 2018-09-13 10:18 | NUR ---
CARE ASSUMED CARE AND REPORT ASSUMED FROM SEGUNDO TOMLIN. PT SITTING UP IN BED. SHE IS A/O X3, CALM AND COOPERATIVE. C/O MILD FLANK PAIN. PT IS ABLE TO GET OUT OF BED AND ONTO BSC BUT EASILY BECOMES SOB. NSR, HR 80S. BP STABLE. AFEBRILE. NO SIGNS OF ACTIVE BLEEDING AT THIS TIME. TOLERATED EATING BREAKFAST. NS TKO INFUSING. ANBX INFUSING. INSULIN GTT AT 10 UNITS/HR AT THIS TIME. LANTUS 20 UNITS GIVEN SUBQ; WILL MONITOR BLOOD SUGAR CLOSELY. CALL LIGHT WITHIN REACH. WILL CONTINUE TO MONITOR.
--- NOTE | 2018-09-13 11:33 | NUR ---
REASSESSMENT PT UP TO BEDSIDE COMMODE WITH 1 ASSIST. NOW BACK IN BED AND LYING FLAT WITH CPAP MASK SECURED. MD TIRADO CONSULTED FOR ANEMIA; MESSAGE LEFT WITH ANSWERING SERVICE. PT RECEIVING 1/2 UNITS PRBCS THROUGH WARMER AT THIS TIME. RECEIVED LANTUS 20 UNITS AND INSULIN GTT CONTINUES TO INFUSE; CURRENTLY AT 12 UNITS/HR. WILL MONITOR BLOOD SUGAR AND TITRATE ABLE. REMAINS IN NSR, HR 80S WITH STABLE BP. PT C/O MILD NAUSEA AFTER RECIEVING FEW SALINE FLUSHES; ZOFRAN 4 MG IVP GIVEN AND NAUSEA STARTING TO RESOLVE. CALL LIGHT WITHIN REACH. WILL CONTINUE TO MONITOR.
--- NOTE | 2018-09-13 16:55 | NUR ---
REASSESSMENT PT CONTINUEST TO LIE FLAT IN BED PER HER REQUEST. TURNS SELF IN BED. SHE IS ABLE TO GET IN/OUT OF BED WITH 1 ASSIST. NO SIGNS OF BLEEDING AT THIS TIME. 2 UNITS PRBCS COMPLETED AND WILL RECHECK H/H. AFEBRILE. NSR, HR 80-90S AND BP STABLE. LUNG SOUNDS WHEEZY THROUGHOUT BUT PT REFUSED ALBUTEROL NEB TREATEMENT. STATES "THOSE TREATMENTS HURT MY LUNGS". INSULIN GTT HAS REMAINED OFF SINCE 1430; CONTINUING TO MONITOR SUGAR. PT HAS BEEN NPO SINCE 0900. DAY SURGERY BEDSIDE SETTING UP FOR EGD. WILL CONTINUE TO MONITOR.
--- NOTE | 2018-09-13 16:59 | NUR ---
CONSENTS SIGNED, PT IS CAOX4, SLIGHTLY ANXIOUS, ICU PT MONITORED, RA BIOX 93%, INSP/EXP WHEEZES PER PT'S PRIMARY NURSE.
--- NOTE | 2018-09-13 17:06 | NUR ---
09/13/18 1706 Chato Armenta 3-LEAD EKG REVIEWED WITH PHYSICIAN PRIOR TO START OF PROCEDURE.PATIENT CONFIRMS NPO STATUS AND AGREES WITH SCHEDULED PROCEDURE.History, Chart, Medications and Allergies reviewed before start of procedure. MONITOR INTACT WITH CONTINUOUS PULSE OXIMETRY AND INTERMITTENT BP.O2 VIA N/C INTACT THROUGHOUT SEDATION/PROCEDURE.Bite Block Placed
--- NOTE | 2018-09-13 18:42 | NUR ---
SHIFT SUMMARY RECEIVED BEDSIDE EGD AT 1730 TODAY AND IS NOW AWAKE, SITTING UP IN BED, EATING DINNER. RECIEVED 2 UNITS PRBCS; REPEAT H/H PENDING. INSULIN GTT TURNED OFF AT 1530 DUE TO DROPPING BLOOD SUGAR. WILL RECHECK AT THIS TIME AND DETERMINE PLAN OF ACTION PER MD. NSR, HR 90S. BP STABLE AND PT AFEBRILE. PT HAS HAD SMALL AMOUNT OF BLOODY OOZING FROM SITE WHERE SHE RECIEVED LOVENOX INJECTION. WILL GIVE BEDSIDE, HANDOFF REPORT TO YUNIEL TOMLIN.
--- NOTE | 2018-09-13 19:30 | NUR ---
ASSUMED CARE PT SUPINE IN BED WITH CPAP ON, AWAKE AND ALERT, CURRENTLY DENIES COMPLAINTS. S/P EGD TODAY WITH NO ACTIVE BLEEDING FOUND. CURRENTLY AWAITING H&H RESULTS THAT WERE JUST OBTAINED. VSS, ECG SHOWS SR IN THE 90'S AND O2 SATS LOW 90'S ON RA. PER AM RN, PT HAS REFUSED BREATHING TX AND O2 DURING DAY SHIFT. PT REPORTS SHE PUTS HER CPAP BACK ON WHEN SHE HEARS THE ALARM FOR O2 SATS LESS THAN 90.
[2018-09-13 19:42] LABS: Hematocrit 25.2 % (33.0-51.0); Hemoglobin 8.9 g/dL (11.5-16.0)
[2018-09-14 04:21] LABS: BASOPHILS ABSOLUTE AUTO 0.12 K/mm3 (0.00-0.23); BASOPHILS PERCENT AUTO 0 % (0-2); Mean Corpuscular HGB 30.9 pg (26.0-34.0); Mean Corpuscular HGB Conc 35.4 g/dL (31.5-36.5); Mean Corpuscular Volume 87 fL (80-100); NRBC ABSOLUTE 0.91 K/mm3 (0.00-0.02); NRBC Auto 2.6 /100 WBC (0.0-0.2); Red Blood Cell Count 2.56 M/mm3 (3.80-5.20); White Blood Cell Count 35.36 K/mm3 (4.00-11.30)
[2018-09-14 04:23] LABS: Alanine Aminotransfer (ALT/SGP 18 U/L (12-78); Albumin, Blood 1.6 g/dL (3.4-5.0); Albumin/Globulin Ratio 0.4 (0.8-1.8); Alk Phos 136 U/L (50-136); Anion Gap 5 mmol/L (6-16); Aspartate Aminotrans (AST/SGOT 33 U/L (12-37); Bilirubin, Total 2.2 mg/dL (0.1-1.0); Blood Urea Nitrogen 26 mg/dL (8-24); Bun/Creatinine Ratio 35.9 (12.0-20.0); CO2, Blood 29 mmol/L (21-32); Calcium, Blood 7.8 mg/dL (8.5-10.1); Chloride, Blood 104 mmol/L (98-108); Creatinine, Blood 0.73 mg/dL (0.40-1.00); Globulin, Blood 3.8 g/dL (2.2-4.0); Glomerular Filtration Rate >60 (60-); Glucose, Blood 296 mg/dL (70-99); Potassium, Blood 3.6 mmol/L (3.5-5.5); Sodium, Blood 138 mmol/L (136-145); Total Protein, Blood 5.4 g/dL (6.4-8.2)
[2018-09-14 04:25] LABS: EOSINOPHILS ABSOLUTE AUTO 0.09 K/mm3 (0.00-0.68); EOSINOPHILS PERCENT AUTO 0 % (0-6); IMMATURE GRAN ABSOLUTE AUTO 4.42 K/mm3 (0.00-0.10); IMMATURE GRAN PERCENT AUTO 13 % (0-1); LYMPHOCYTES ABSOLUTE AUTO 3.46 K/mm3 (0.84-5.20); LYMPHOCYTES PERCENT AUTO 10 % (21-46); MONOCYTES ABSOLUTE AUTO 0.75 K/mm3 (0.16-1.47); MONOCYTES PERCENT AUTO 2 % (4-13); NEUTROPHILS ABSOLUTE AUTO 26.52 K/mm3 (1.96-9.15); NEUTROPHILS PERCENT AUTO 75 % (41-73); Platelet Count 403 K/mm3 (150-400)
[2018-09-14 04:26] LABS: Hematocrit 22.3 % (33.0-51.0); Hemoglobin 7.9 g/dL (11.5-16.0)
[2018-09-14 04:40] LABS: BAND PERCENT MAN 6 % (0-8); BASOPHILS PERCENT MAN 0 % (0-2); EOSINOPHILS ABSOLUTE MAN 0.35 K/mm3 (0.00-0.68); EOSINOPHILS PERCENT MAN 1 % (0-6); LYMPHOCYTES ABSOLUTE MAN 2.47 K/mm3 (0.84-5.20); LYMPHOCYTES PERCENT MAN 7 % (21-46); METAMYELOCYTE ABSOLUTE MAN 0.35 K/mm3 (0.00-0.00); METAMYELOCYTE PERCENT MAN 1 % (0-0); MONOCYTES PERCENT MAN 2 % (4-13); MYELOCYTE PERCENT MAN 2 % (0-0); PROMYELOCYTE ABSOLUTE MAN 0.35 K/mm3 (0.00-0.00); PROMYELOCYTE PERCENT MAN 1 % (0-0); SEG NEUTROPHILS PERCENT MAN 80 % (41-73); TOTAL CELLS COUNTED 100
--- NOTE | 2018-09-14 06:04 | NUR ---
SHIFT SUMMARY NO ACUTE EVENTS OVERNIGHT. PT USES CALL LIGHT APPROPRIATELY FOR BSC USE. NO BM THIS SHIFT OR ANY OTHER OBVIOUS SIGNS OF BLEEDING. HGB DROPPED BY ONE FULL POINT SINCE 1900 LAST NIGHT, WILL PASS ON TO AM RN FOR EFM MD MORRISON. PT DID REPORT TO HER DTR THAT HER BLOOD GLUCOSE WAS "TOO LOW" AT 270. EDUCATION GIVEN ON COMPLICATIONS RELATED TO HIGH BG'S WITH DTR PRESENT. PT HAS BEEN WITHOUT COMPLAINT FOR SHIFT, PT'S DAUGHTER CAME BY AND UPDATED ON EGD FINDINGS OF NO ACTIVE BLEEDING AND DR GROSS CONSULTATION FOR ADDITIONAL WORKUP. VSS, ECG SHOWS SR O2 SATS LOW/MID 90'S AND PT TOLERATED CPAP OVERNIGHT.
[2018-09-14 06:14] LABS: COMPLEMENT C3, SERUM 83 mg/dL (82-167); COMPLEMENT C4, SERUM 3 mg/dL (14-44); HAPTOGLOBIN <10 mg/dL (34-200)
--- NOTE | 2018-09-14 07:37 | NUR ---
ASSUMED CARE: PT RESTING QUIETLY AT THIS TIME, WEARING CPAP. SL AT THIS TIME. NO ACUTE NEEDS OR CONCERNS AT PRESENT
--- NOTE | 2018-09-14 09:30 | NUR ---
DISCUSSED PT'S CASE WITH DR TABOR. ASKED IF ADVANCED REGISTERED NURSE CONSULT NEEDED. SEE NEW ORDERS
[2018-09-14 12:30] LABS: Stool Occult Blood Guaiac 1 Neg (Neg)
[2018-09-14 13:07] LABS: ANTI-DSDNA ANTIBODIES <1 IU/mL (0-9); RNP ANTIBODIES <0.2 AI (0.0-0.9); SJOGREN'S ANTI-SS-A <0.2 AI (0.0-0.9); SJOGREN'S ANTI-SS-B <0.2 AI (0.0-0.9); SMITH ANTIBODIES <0.2 AI (0.0-0.9)
[2018-09-14 13:59] LABS: Stool Occult Blood Guaiac 1 Neg (Neg)
--- NOTE | 2018-09-14 16:34 | NUR ---
NEW ORDER FOR METFORMIN NOTED. DISCUSSED WITH PT PRIOR TO ADMINISTRATION AND PT STATES THAT SECOND DOSE AT HOME SHE IS NOT ALWAYS COMPLIANT WITH BECAUSE SHE DOES NOT ALWAYS EAT DINNER AT THE SAME TIME AT HOME. DISCUSSED WITH PHARMACIST AND RECEIVED SUGGESTION FOR EXTENDED RELEASE SO SHE MIGHT BE MORE LIKELY TO TAKE APPROPRIATELY. CALL TO DR TABOR TO RELAY THIS MESSAGE SO THAT IS AWARE UPON DC. NO NEW ORDERS AT THIS TIME.
--- NOTE | 2018-09-14 17:03 | NUR ---
ASSUMED CARE OF PT AT 1700 Report received from Natalia TOMLIN.
--- NOTE | 2018-09-14 17:12 | NUR ---
TRANSFERRED CARE TO LOPEZ TOMLIN. PT RESTING QUIETLY IN BED, AWARE OF NEW NURSE. DENIES NEEDS OR CONCERNS AT THIS TIME.
--- NOTE | 2018-09-14 18:45 | NUR ---
SUMMARY No acute changes since assumption of care. Pt alert and oriented. Ate dinner sitting up in bed. No events per heart monitor. Will continue to closely monitor until care hand off and bedside report with oncoming RN.
--- NOTE | 2018-09-14 19:15 | NUR ---
ASSUME CARES: REPORT RECIEVED FROM OFF GOING RN LOPEZ. MONITOR INTACT SHOWING SINUS RHYTHM. HEART RATE 90'S-100'S. UP TO BSC WITH MINIMAL ASSIST. GAIT STEADY BACK TO BED. VISITS ON PHONE. LUNG SOUNDS CLEAR UPPER LOBES DECREASED BASES. RESPIRATIONS REGULAR AND SHALLOW AT REST BECOMES SOB WITH ANY EXERTION. ABDOMEN SOFT WITH BOWEL SOUNDS FOUR QUADS. PITTING EDEMA TO LOWER EXTREMITIES ESPECIALLY FEET. REPOSITIONS SELF WITH MINIMAL ASSIST. SKIN PALE DRY INTACT. CONTINUE TO MONITOR AND REPORT CHANGE IN PATIENT CONDITION.
[2018-09-15 04:30] LABS: Alanine Aminotransfer (ALT/SGP 17 U/L (12-78); Albumin, Blood 1.7 g/dL (3.4-5.0); Albumin/Globulin Ratio 0.5 (0.8-1.8); Alk Phos 121 U/L (50-136); Anion Gap 5 mmol/L (6-16); Aspartate Aminotrans (AST/SGOT 31 U/L (12-37); Bilirubin, Total 1.6 mg/dL (0.1-1.0); Blood Urea Nitrogen 18 mg/dL (8-24); Bun/Creatinine Ratio 29.1 (12.0-20.0); CO2, Blood 31 mmol/L (21-32); Calcium, Blood 7.9 mg/dL (8.5-10.1); Chloride, Blood 103 mmol/L (98-108); Creatinine, Blood 0.62 mg/dL (0.40-1.00); Globulin, Blood 3.7 g/dL (2.2-4.0); Glomerular Filtration Rate >60 (60-); Glucose, Blood 234 mg/dL (70-99); Potassium, Blood 3.7 mmol/L (3.5-5.5); Sodium, Blood 139 mmol/L (136-145); Total Protein, Blood 5.4 g/dL (6.4-8.2)
[2018-09-15 04:33] LABS: BASOPHILS ABSOLUTE AUTO 0.06 K/mm3 (0.00-0.23); BASOPHILS PERCENT AUTO 0 % (0-2); Mean Corpuscular HGB 31.1 pg (26.0-34.0); Mean Corpuscular HGB Conc 34.3 g/dL (31.5-36.5); Mean Platelet Volume 11.7 fL (9.1-12.4); NRBC Auto 3.8 /100 WBC (0.0-0.2); Platelet Count 389 K/mm3 (150-400); RDW Coefficient Variation 16.4 % (11.7-14.2); RDW Standard Deviation 50.6 fL (35.1-46.3); Red Blood Cell Count 2.25 M/mm3 (3.80-5.20); White Blood Cell Count 29.21 K/mm3 (4.00-11.30)
[2018-09-15 04:35] LABS: EOSINOPHILS ABSOLUTE AUTO 0.14 K/mm3 (0.00-0.68); EOSINOPHILS PERCENT AUTO 1 % (0-6); Hematocrit 20.4 % (33.0-51.0); IMMATURE GRAN ABSOLUTE AUTO 4.18 K/mm3 (0.00-0.10); IMMATURE GRAN PERCENT AUTO 14 % (0-1); LYMPHOCYTES ABSOLUTE AUTO 4.19 K/mm3 (0.84-5.20); LYMPHOCYTES PERCENT AUTO 14 % (21-46); MONOCYTES ABSOLUTE AUTO 0.76 K/mm3 (0.16-1.47); MONOCYTES PERCENT AUTO 3 % (4-13); Mean Corpuscular Volume 91 fL (80-100); NEUTROPHILS ABSOLUTE AUTO 19.88 K/mm3 (1.96-9.15); NEUTROPHILS PERCENT AUTO 68 % (41-73)
[2018-09-15 04:47] LABS: BAND PERCENT MAN 6 % (0-8); BASOPHILS PERCENT MAN 0 % (0-2); EOSINOPHILS ABSOLUTE MAN 0.29 K/mm3 (0.00-0.68); EOSINOPHILS PERCENT MAN 1 % (0-6); LYMPHOCYTES ABSOLUTE MAN 4.96 K/mm3 (0.84-5.20); LYMPHOCYTES PERCENT MAN 17 % (21-46); METAMYELOCYTE ABSOLUTE MAN 0.29 K/mm3 (0.00-0.00); METAMYELOCYTE PERCENT MAN 1 % (0-0); MONOCYTES ABSOLUTE MAN 0.87 K/mm3 (0.16-1.47); MONOCYTES PERCENT MAN 3 % (4-13); NEUTROPHILS ABSOLUTE MAN 22.78 K/mm3 (1.96-9.15); SEG NEUTROPHILS PERCENT MAN 72 % (41-73); TOTAL CELLS COUNTED 100
--- NOTE | 2018-09-15 06:17 | NUR ---
SHIFT SUMMARY: RESTS QUIETLY WHEN UNDISTURBED MONITOR INTACT SHOWING SINUS RHYTHM HEART RATE 90'S-100'S. LUNG SOUNDS CLEAR UPPER WITH DECREASED BASES. WEARS CPAP AT NOC. WITH 4L BLEED IN. RESPIRATIONS REGULAR AND SHALLOW AT REST. BECOMES DYSPNEC WITH ACTIVITY. ABDOMEN SOFT SLIGHTLY TENDER. BOWEL SOUNDS FOUR QUADS. VOIDS DARK CORNELIO URINE PER BSC. STANDBY ONE PERSON ASSIST. CONTINUE TO MONITOR AND REPORT CHANGE IN PATIENT CONDITION.
--- NOTE | 2018-09-15 08:10 | NUR ---
AM ASSESSMENT: Pt resting in bed at this time. States that she is doing good. Denies , CP, pain, numbness or tingling. States that she does have some pain when she has a BM. Denies the appearance of blood in her stool. Pt states that she does feel weak when she gets out of bed. H+H low. VSS. Will monitor and treat per orders. Call light in reach.
--- NOTE | 2018-09-15 11:10 | NUR ---
update: Started unit of PRBC per orders. Pt verbalzied understanding of possible blood reaction. LS clear. VSS. Will monitor.
--- NOTE | 2018-09-15 17:10 | NUR ---
SHIFT SUMMARY: Pt resing in bed at this time. She has done well this shift. LS have remained diminished with some faint wheezing. Pt does become slightly SOB with activity. Pt had one unit PRBC today. Tolerated well. Also had Tagged Red blood cell study done. VSS this shift. Has been up to void multiple times, no BM yet this shift. Pt was changed to Clear liqued diet for possible colonoscopy in the next few days. NO other changes this shift. WIll report to night RN.
--- NOTE | 2018-09-15 18:41 | NUR ---
PT TRANSFERED FROM ICU 11 AND AMBULATED FROM ICU BED TO [facility] BED WITH STAND BY ASSIST. PT IS A/O 3 AND VERY PLEASANT AND THANKFUL FOR HER CARE. SHE DENIES PAIN. PT WAS ORIENTED TO HER ROOM, CALL LIGHT AND NURSING STAFF AND HAS NO QUESTIONS AT THIS TIME. AFTER SETTLING IN ROOM PT AMBULATED TO BATHROOM AND VOIDED WITH NO ISSUES. PT IS RESTING IN BED.
[2018-09-16 00:36] LABS: Stool Occult Blood Guaiac 1 Neg (Neg)
[2018-09-16 01:36] LABS: Stool Occult Blood Guaiac 2 Neg (Neg)
[2018-09-16 02:58] LABS: Adenovirus F 40/41 Not Detected (NOT DETECT); Campylobacter Sp Not Detected (NOT DETECT); Cryptosporidium Not Detected (NOT DETECT); Cyclospora Cayetanensis Not Detected (NOT DETECT); E. Coli O157 Not Detected (NOT DETECT); Entamoeba Histolytica Not Detected (NOT DETECT); Enteroaggregative E. coli-EAEC Not Detected (NOT DETECT); Enteropathogenic E. coli-EPEC Not Detected (NOT DETECT); Enterotoxigenic E. coli-ETEC Not Detected (NOT DETECT); Giardia Lamblia Not Detected (NOT DETECT); Plesiomonas Shigelloides Not Detected (NOT DETECT); Salmonella Sp Not Detected (NOT DETECT); Shiga Toxin-prod E. coli-STEC Not Detected (NOT DETECT); Shigella/Enteroin E. coli-EIEC Not Detected (NOT DETECT); Vibrio Cholerae Not Detected (NOT DETECT); Vibrio Sp Not Detected (NOT DETECT); Yersinia Enterocolitica Not Detected (NOT DETECT)
[2018-09-16 02:59] LABS: Astrovirus Not Detected (NOT DETECT); Norovirus GI/GII Not Detected (NOT DETECT); Rotavirus A Not Detected (NOT DETECT); Sapovirus Not Detected (NOT DETECT)
[2018-09-16 05:45] LABS: Anion Gap 3 mmol/L (6-16); Blood Urea Nitrogen 13 mg/dL (8-24); CO2, Blood 32 mmol/L (21-32); Calcium, Blood 8.1 mg/dL (8.5-10.1); Chloride, Blood 103 mmol/L (98-108); Creatinine, Blood 0.65 mg/dL (0.40-1.00); Glomerular Filtration Rate >60 (60-); Glucose, Blood 134 mg/dL (70-99); Potassium, Blood 3.9 mmol/L (3.5-5.5); Sodium, Blood 138 mmol/L (136-145)
[2018-09-16 06:00] LABS: Hematocrit 22.3 % (33.0-51.0); Hemoglobin 7.5 g/dL (11.5-16.0); Mean Corpuscular HGB 30.1 pg (26.0-34.0); Mean Corpuscular Volume 90 fL (80-100); Mean Platelet Volume 11.4 fL (9.1-12.4); NRBC ABSOLUTE 0.52 K/mm3 (0.00-0.02); NRBC Auto 2.6 /100 WBC (0.0-0.2); Platelet Count 374 K/mm3 (150-400); RDW Coefficient Variation 17.5 % (11.7-14.2); RDW Standard Deviation 49.2 fL (35.1-46.3); Red Blood Cell Count 2.49 M/mm3 (3.80-5.20); White Blood Cell Count 20.37 K/mm3 (4.00-11.30)
[2018-09-16 06:05] LABS: Mean Corpuscular HGB Conc 33.6 g/dL (31.5-36.5)
--- NOTE | 2018-09-16 06:23 | NUR ---
SHIFT SUMMARY: 58 Y/O FEMALE RESTED COMFORTABLY ALL SHIFT. PT STATED, "I'M NOT A DIABETIC AND TEND TO NOT TAKE MY INSULIN, NOR CHECK BSC REGULARLY OR FOLLOW THE DIET REQUIRED". PT EDUCATED BY THIS NURSE REGARDING DIABETIC DIET, SENIOR FUNCTIONAL ANALYST SIDE AFFECTS DIABETES, NEED TO CHECK BSG DAILY, RECORD RESULTS AND FOLLOW DIET ORDERED BY MD WITH REINFORCEMENT REQUIRED. PTS AM BLOOD LABS REFLECT HG 7.5, HCT 22.3, K+ 3.9. PT WORE B/PAP ALL NIGHT AFTER RESPIRATORY THERAPIST APPLIED UNIT. PT DENIES PAIN OR NAUSEA. PTS BED LOW POSITION, CALL LIGHT AT SIDE.
[2018-09-16 15:14] LABS: Campylobacter Sp Not Detected (NOT DETECT)
[2018-09-16 15:15] LABS: Adenovirus F 40/41 Not Detected (NOT DETECT); Astrovirus Not Detected (NOT DETECT); Cryptosporidium Not Detected (NOT DETECT); Cyclospora Cayetanensis Not Detected (NOT DETECT); E. Coli O157 Not Detected (NOT DETECT); Entamoeba Histolytica Not Detected (NOT DETECT); Enteroaggregative E. coli-EAEC Not Detected (NOT DETECT); Enteropathogenic E. coli-EPEC Not Detected (NOT DETECT); Enterotoxigenic E. coli-ETEC Not Detected (NOT DETECT); Giardia Lamblia Not Detected (NOT DETECT); Norovirus GI/GII Not Detected (NOT DETECT); Plesiomonas Shigelloides Not Detected (NOT DETECT); Rotavirus A Not Detected (NOT DETECT); Salmonella Sp Not Detected (NOT DETECT); Sapovirus Not Detected (NOT DETECT); Shiga Toxin-prod E. coli-STEC Not Detected (NOT DETECT); Shigella/Enteroin E. coli-EIEC Not Detected (NOT DETECT); Vibrio Cholerae Not Detected (NOT DETECT); Vibrio Sp Not Detected (NOT DETECT); Yersinia Enterocolitica Not Detected (NOT DETECT)
--- NOTE | 2018-09-16 16:51 | NUR ---
SHIFT SUMMARY: PT IS A/O X 3 THIS SHIFT WITH NO C/O PAIN. PT HAS BEEN RESTING IN BED MOST OF SHIFT WITH A SHORT VISIT WITH HER DAUGHTER THIS AFTERNOON WHERE SHE GOT UP TO W/C WITH X 1 ASSIST. PT CONTINUES TO USE BIPAP WHILE SLEEPING. SECOND STOOL SAMPLE WAS SENT TO LAB AND RESULTS WERE NEGATIVE. PT CONTINUES TO NEED DIABETIC EDUCATION AND CBGS WERE COVERED WITH SLIDING SCALE ORDERED. PT USES CALL LIGHT APPROPRIATELY FOR ASSIST WHEN NEEDED.
--- NOTE | 2018-09-17 04:31 | NUR ---
SHIFT SUMMARY: 58 Y/O OBESE FEMALE RESTED COMFORTABLY. PT VOICED SHE STILL DOES NOT INTEND TO FOLLOW DIABETIC DIET OR ROUTINE UPON DISCHARGE WITH THIS NURSE REVIEWING SIDE AFFECTS OF DIABETES TO INCLUDE LOSS OF LIMBS, KIDNEY AMD EYE PROBLEMS WITH PATIENT MUMBLING ACKNOWLEDGMENT. PT DEMONSTRATING POSSIBLE NON COMPLIANE WITH DIABETES IN FUTURE. PT ALERT AND ORIENTED X 4. PT WORE C/PAP ALL SHIFT, TOOK ALL MEDICATIONS, DENIES PAIN OR NAUSEA, ABLE AMBULATE BATHROOM AND BACK WITHOUT ISSUE. PTS BED LOW POSITION, CALL LIGHT AT SIDE.
[2018-09-17 05:01] LABS: Anion Gap 4 mmol/L (6-16); Blood Urea Nitrogen 10 mg/dL (8-24); Bun/Creatinine Ratio 15.4 (12.0-20.0); CO2, Blood 32 mmol/L (21-32); Calcium, Blood 8.2 mg/dL (8.5-10.1); Chloride, Blood 103 mmol/L (98-108); Creatinine, Blood 0.65 mg/dL (0.40-1.00); Glomerular Filtration Rate >60 (60-); Glucose, Blood 126 mg/dL (70-99); Potassium, Blood 4.2 mmol/L (3.5-5.5); Sodium, Blood 139 mmol/L (136-145)
[2018-09-17 05:05] LABS: Hematocrit 24.1 % (33.0-51.0); Hemoglobin 7.8 g/dL (11.5-16.0); Mean Corpuscular HGB 29.8 pg (26.0-34.0); Mean Corpuscular HGB Conc 32.4 g/dL (31.5-36.5); Mean Corpuscular Volume 92 fL (80-100); Mean Platelet Volume 10.8 fL (9.1-12.4); NRBC ABSOLUTE 0.23 K/mm3 (0.00-0.02); NRBC Auto 1.8 /100 WBC (0.0-0.2); Platelet Count 403 K/mm3 (150-400); RDW Coefficient Variation 17.7 % (11.7-14.2); RDW Standard Deviation 51.1 fL (35.1-46.3); Red Blood Cell Count 2.62 M/mm3 (3.80-5.20); White Blood Cell Count 12.84 K/mm3 (4.00-11.30)
[2018-09-17] MEDS ORDERED: INSULANPEN SC (12:49)
[2018-09-17] MEDS ORDERED: FERSU300 PO (12:50)
[2018-09-17] MEDS ORDERED: MIRALAX17 GM PO (12:50)
[2018-09-17] MEDS ORDERED: LEVO750 PO (12:50)
[2018-09-17] MEDS ORDERED: Humalog100 UNIT/3 SC (13:43)
--- NOTE | 2018-09-17 14:22 | NUR ---
DISCHARGE SUMMARY NO ACUTE CONCERNS PER PATIENT. ALL MEDICATIONS SENT TO THE PHARMACY. SPOKE WITH THE PATIENT AND HER SISTER IN LENGTH ABOUT THE IMPORTANCE OF DIABETES EDUCATION, AND MEDICATION. SISTER STATED SHE WOULD HELP REARRANGE THE PATIENT'S FINANCES WITH NEED FOR MEDICATIONS AND MAKING AN IMPORTANCE IN THE PATIENT'S HEALTH. PATY CARNEY.
[2018-09-18 10:06] LABS: (LD) FRACTION 1 31 % (17-32); (LD) FRACTION 2 36 % (25-40); (LD) FRACTION 3 18 % (17-27); (LD) FRACTION 4 8 % (5-13); (LD) FRACTION 5 7 % (4-20); LDH 1546 IU/L (119-226)
== END 2018-09-17 14:14 | disposition home or self-care (01) | DRG 871 ==
LOC: ER 21:47 → ERHOLD 09-11 02:10 → ICUW 09-11 02:10 → MEDS 09-15 18:36
PROVIDERS: Emergency Medicine; Internal Medicine; Internal Medicine Gastroenterology; ADMIT Internal Medicine
PROC: 0DJ08ZZ Inspection of Upper Intestinal Tract, Via Natural or Artificial Opening Endoscopic (ICD-10-PCS; principal; 2018-09-13 09:15)
PROC: 30233N1 Transfusion of Nonautologous Red Blood Cells into Peripheral Vein, Percutaneous Approach (ICD-10-PCS; 2018-09-15)
DX: A40.3 Sepsis due to Streptococcus pneumoniae (principal); R65.20 Severe sepsis without septic shock; J18.9 Pneumonia, unspecified organism; E11.10 Type 2 diabetes mellitus with ketoacidosis without coma; J96.01 Acute respiratory failure with hypoxia; J44.1 Chronic obstructive pulmonary disease with (acute) exacerbation; J44.0 Chronic obstructive pulmonary disease with (acute) lower respiratory infection; E87.1 Hypo-osmolality and hyponatremia; Z68.42 Body mass index [BMI] 45.0-49.9, adult; D50.9 Iron deficiency anemia, unspecified; E66.01 Morbid (severe) obesity due to excess calories; I10 Essential (primary) hypertension; F41.9 Anxiety disorder, unspecified; F17.210 Nicotine dependence, cigarettes, uncomplicated; G47.33 Obstructive sleep apnea (adult) (pediatric); E88.09 Other disorders of plasma-protein metabolism, not elsewhere classified; Z79.84 Long term (current) use of oral hypoglycemic drugs; Z79.899 Other long term (current) drug therapy
CPT/HCPCS: 0097U; 36415; 36430; 71045; 71260; 76705; 78278; 80048; 80053; 81001; 81256; 82010; 82024; 82248; 82272; 82533; 82728; 82947; 83010; 83036; 83540; 83550; 83605; 83615; 83625; 83690; 83735; 83880; 83930; 84145; 84436; 84439; 84443; 84481; 84484; 85014; 85018; 85025; 85027; 85610; 85651; 86038; 86160; 86225; 86235; 86704; 86708; 86803; 86850; 86900; 86901; 86920; 86923; 87040; 87070; 87186; 87205; 87340; 87486; 87581; 87633; 87798; 93005; 93010; 93306; 94640; 94660; 94760; 94762; 96361; 96365; 96366; 96367; 96368; 96375; 96376; 99285-25; A9560; C1751; C9113; J1650; J1815; J1956; J2405; J2543; J2704; J2930; J3370; J7030; J7050; J7120; P9016; P9046; Q9967

== ENCOUNTER 2018-09-20 03:48 | Emergency (ER) | payer MEDICARE ==
[~2018-09-20] VITALS: Ht 157.5 cm; Wt 115.7 kg
[~2018-09-20 03:48] MED LIST changes: +FERSU300 PO; +Humalog100 UNIT/3 SC; +INSULANPEN SC; +LEVO750 PO; +MIRALAX17 GM PO
[2018-09-20 04:52] LABS: BASOPHILS ABSOLUTE AUTO 0.02 K/mm3 (0.00-0.23); BASOPHILS PERCENT AUTO 0 % (0-2); EOSINOPHILS ABSOLUTE AUTO 0.09 K/mm3 (0.00-0.68); EOSINOPHILS PERCENT AUTO 1 % (0-6); Hematocrit 23.4 % (33.0-51.0); Hemoglobin 7.2 g/dL (11.5-16.0); IMMATURE GRAN ABSOLUTE AUTO 0.05 K/mm3 (0.00-0.10); IMMATURE GRAN PERCENT AUTO 1 % (0-1); LYMPHOCYTES ABSOLUTE AUTO 1.66 K/mm3 (0.84-5.20); LYMPHOCYTES PERCENT AUTO 20 % (21-46); MONOCYTES ABSOLUTE AUTO 0.61 K/mm3 (0.16-1.47); MONOCYTES PERCENT AUTO 7 % (4-13); Mean Corpuscular HGB 30.3 pg (26.0-34.0); Mean Corpuscular HGB Conc 30.8 g/dL (31.5-36.5); Mean Platelet Volume 9.9 fL (9.1-12.4); NEUTROPHILS ABSOLUTE AUTO 5.85 K/mm3 (1.96-9.15); NEUTROPHILS PERCENT AUTO 71 % (41-73); Platelet Count 479 K/mm3 (150-400); RDW Coefficient Variation 18.6 % (11.7-14.2); RDW Standard Deviation 61.5 fL (35.1-46.3); Red Blood Cell Count 2.38 M/mm3 (3.80-5.20); White Blood Cell Count 8.28 K/mm3 (4.00-11.30)
[2018-09-20 04:53] LABS: Mean Corpuscular Volume 98 fL (80-100)
[2018-09-20 05:04] LABS: Troponin I <0.015 ng/mL (0.000-0.040)
[2018-09-20 05:05] LABS: Alanine Aminotransfer (ALT/SGP 16 U/L (12-78); Albumin, Blood 2.3 g/dL (3.4-5.0); Albumin/Globulin Ratio 0.6 (0.8-1.8); Alk Phos 98 U/L (50-136); Anion Gap 4 mmol/L (6-16); Aspartate Aminotrans (AST/SGOT 19 U/L (12-37); Bilirubin, Total 0.7 mg/dL (0.1-1.0); Blood Urea Nitrogen 10 mg/dL (8-24); Bun/Creatinine Ratio 12.8 (12.0-20.0); CO2, Blood 30 mmol/L (21-32); Calcium, Blood 8.2 mg/dL (8.5-10.1); Chloride, Blood 105 mmol/L (98-108); Creatinine, Blood 0.78 mg/dL (0.40-1.00); Globulin, Blood 4.1 g/dL (2.2-4.0); Glomerular Filtration Rate >60 (60-); Glucose, Blood 151 mg/dL (70-99); Potassium, Blood 3.8 mmol/L (3.5-5.5); Sodium, Blood 139 mmol/L (136-145); Total Protein, Blood 6.4 g/dL (6.4-8.2)
[2018-09-20 05:21] LABS: Source, Urine Clean Catch
[2018-09-20 05:25] LABS: Bilirubin, Urine Neg (Neg); Blood, Urine Neg (Neg); Glucose Qualitative, Urine Neg (Neg); Ketones, Urine Neg (Neg); Leukocyte Esterase, Urine 2+ (Neg); Nitrite, Urine Neg (Neg); Protein, Urine Neg (Neg); Specific Gravity, Urine 1.005 (1.003-1.022); Urobilinogen, Urine NORM (Normal)
[2018-09-20 05:28] LABS: Appearance, Urine Clear (Clear); Color, Urine Yellow (P-Yellow)
[2018-09-20 05:33] LABS: Bacteria Rare /hpf; Red Blood Cells, Urine 0-2 /hpf (0-2); Squamous Epithelial Cells Few /hpf (Few)
== END 2018-09-20 06:15 | disposition home or self-care (01) ==
LOC: ER 03:48
PROVIDERS: Emergency Medicine
DX: R60.0 Localized edema (principal); J02.9 Acute pharyngitis, unspecified; D64.9 Anemia, unspecified; Z79.899 Other long term (current) drug therapy; Z79.4 Long term (current) use of insulin; E11.9 Type 2 diabetes mellitus without complications; I10 Essential (primary) hypertension; J44.9 Chronic obstructive pulmonary disease, unspecified; F17.210 Nicotine dependence, cigarettes, uncomplicated
CPT/HCPCS: 36415; 71046; 80053; 81001; 83880; 84484; 85025; 86850; 86900; 86901; 87081; 87086; 87430; 93005; 93010; 99285-25

== ENCOUNTER 2018-10-01 22:20 | Emergency (ER) | payer MEDICARE ==
[~2018-10-01] VITALS: Ht 157.5 cm; Wt 114.3 kg
[2018-10-02] MEDS ORDERED: Vibramycin100 MG PO (02:25)
== END 2018-10-02 02:55 | disposition home or self-care (01) ==
LOC: ER 22:20
DX: J18.9 Pneumonia, unspecified organism (principal); E11.9 Type 2 diabetes mellitus without complications; I10 Essential (primary) hypertension; J44.9 Chronic obstructive pulmonary disease, unspecified; F17.210 Nicotine dependence, cigarettes, uncomplicated; Z79.4 Long term (current) use of insulin; Z79.899 Other long term (current) drug therapy
CPT/HCPCS: 36415; 71046; 84484; 93005; 93010; 99285-25

== ENCOUNTER 2018-12-07 11:25 | Emergency (ER) | payer MEDICARE ==
[~2018-12-07] VITALS: Ht 157.5 cm; Wt 109.8 kg
[~2018-12-07 11:25] MED LIST changes: +Vibramycin100 MG PO
[2018-12-07] MEDS ORDERED: Ultram50 MG PO (12:51)
== END 2018-12-07 13:10 | disposition home or self-care (01) ==
LOC: ER 11:25
DX: M75.02 Adhesive capsulitis of left shoulder (principal); Z88.8 Allergy status to other drugs, medicaments and biological substances; Z79.899 Other long term (current) drug therapy; Z79.4 Long term (current) use of insulin; E11.9 Type 2 diabetes mellitus without complications; I10 Essential (primary) hypertension; J44.9 Chronic obstructive pulmonary disease, unspecified; Z87.01 Personal history of pneumonia (recurrent); D64.9 Anemia, unspecified; F17.210 Nicotine dependence, cigarettes, uncomplicated; M79.622 Pain in left upper arm
CPT/HCPCS: 76882; 93971; 96372; 99283-25; J1885

== ENCOUNTER 2021-09-23 21:20 | Inpatient (IN) | payer MEDICARE ==
[~2021-09-23] VITALS: Ht 157.5 cm; Wt 107.0 kg
[2021-09-23 22:23] LABS: BASOPHILS ABSOLUTE AUTO 0.07 K/mm3 (0.00-0.23); BASOPHILS PERCENT AUTO 0 % (0-2); EOSINOPHILS ABSOLUTE AUTO 0.07 K/mm3 (0.00-0.68); EOSINOPHILS PERCENT AUTO 0 % (0-6); Hematocrit 43.7 % (33.0-51.0); Hemoglobin 13.8 g/dL (11.5-16.0); IMMATURE GRAN ABSOLUTE AUTO 0.08 K/mm3 (0.00-0.10); IMMATURE GRAN PERCENT AUTO 1 % (0-1); LYMPHOCYTES ABSOLUTE AUTO 1.12 K/mm3 (0.84-5.20); LYMPHOCYTES PERCENT AUTO 6 % (21-46); MONOCYTES ABSOLUTE AUTO 0.53 K/mm3 (0.16-1.47); MONOCYTES PERCENT AUTO 3 % (4-13); Mean Corpuscular HGB 26.7 pg (26.0-34.0); Mean Corpuscular HGB Conc 31.6 g/dL (31.5-36.5); Mean Corpuscular Volume 85 fL (80-100); Mean Platelet Volume 10.4 fL (9.1-12.4); NEUTROPHILS PERCENT AUTO 89 % (41-73); Platelet Count 356 K/mm3 (150-400); RDW Coefficient Variation 13.8 % (11.7-14.2); RDW Standard Deviation 42.9 fL (35.1-46.3); Red Blood Cell Count 5.17 M/mm3 (3.80-5.20); White Blood Cell Count 17.67 K/mm3 (4.00-11.30)
[2021-09-23 22:42] LABS: Albumin, Blood 3.1 g/dL (3.4-5.0); Albumin/Globulin Ratio 0.6 (0.8-1.8); Bilirubin, Total 0.3 mg/dL (0.1-1.0); Bun/Creatinine Ratio 12.6 (12.0-20.0); Calcium, Blood 9.9 mg/dL (8.5-10.1); Creatinine, Blood 0.79 mg/dL (0.40-1.00); Globulin, Blood 4.9 g/dL (2.2-4.0); Potassium, Blood 4.4 mmol/L (3.5-5.5)
[2021-09-24 00:15] LABS: Source, Urine Clean Catch
[2021-09-24 00:18] LABS: Blood, Urine Neg (Neg); Glucose Qualitative, Urine Neg (Neg); Ketones, Urine 1+ (Neg); Leukocyte Esterase, Urine 1+ (Neg); Nitrite, Urine Neg (Neg); Protein, Urine 2+ (Neg); Urobilinogen, Urine 2+ (Normal)
[2021-09-24 00:31] LABS: Bilirubin, Urine 1+ (Neg)
[2021-09-24 00:32] LABS: Appearance, Urine Turbid (Clear); Color, Urine Yellow (P-Yellow)
[2021-09-24 00:34] LABS: Bacteria Many /hpf; Calcium Oxalate Crystals Many /hpf; Granular Casts 0-2 /lpf (0); Hyaline Casts 0-2 /lpf (0-2); Red Blood Cells, Urine 0-2 /hpf (0-2); Squamous Epithelial Cells Mod /hpf (Few)
[2021-09-24 00:35] LABS: Amorphous Light (0-Heavy)
--- NOTE | 2021-09-24 07:00 | NUR ---
O2 SATS 88-89% ON RA. PT REFUSING TO HAVE O2 CANNULA PLACED. PT STATES SHE WEARS 2LO2 BLEED INTO HER CPAP, STATES SHE WILL WEAR CPAP W/O2, BUT NOT NC. DAY RN AND RT NOTIFIED.
--- NOTE | 2021-09-24 07:22 | NUR ---
ASSUMED CARE OF PATIENT. RT IN ROOM TO SET UP PATIENTS HOME CPAP AT BEDSIDE. PATIENT REFUSING CONTINUOUS PULSE OXIMETER, STATES SHE "WILL NOT WEAR THIS ON MY FINGER", "IT GETS IN THE WAY OF EVERYTHING AND JUST DOESNT WORK". RT STAFF CALIXTO TO BRING REFUSAL FORM WHEN PATIENT WAKES UP MORE. CALL LIGHT IN REACH.
[2021-09-24] MEDS ORDERED: BASAGLAR K100 UNIT/1 SC (09:30)
[2021-09-24] MEDS ORDERED: TRULICITY0.75 MG/01 SQ (10:19)
--- NOTE | 2021-09-24 10:42 | NUR ---
PATIENT REFUSING OXYGEN, O2 SATS @ 89% AT THIS TIME.
--- NOTE | 2021-09-24 14:20 | NUR ---
Pt. is awake in bed and welcomes my visit. Pt. is unsettled about her diagnosis. With a calming presence and theraputic listening Pt. displays evidence of trust and engagement. Establish rapport with Pt. Facilitate a life review. The Pt. verbalizes a donnie that is personal. [place] with Pt. Pt. verbalizes gratitude for the spiritual care visit.
--- NOTE | 2021-09-24 15:36 | NUR ---
PHONE CALL TO DR LILLY FOR HOSPITALIST CONSULT, MESSAGE LEFT.
--- NOTE | 2021-09-24 17:15 | NUR ---
THIS RN SPOKE WITH DR LILLY REGARDING HOSPITALIST CONSULT. DR LILLY VERBALLY AGREED AND STATED HIM OR A RESIDENT WILL BE BY TO SEE PATIENT "THIS EVENING".
--- NOTE | 2021-09-24 17:17 | NUR ---
SHIFT SUMMARY NO ACUTE CHANGES THIS SHIFT. MINIMAL ABDOMINAL PAIN, MANAGED PER EMAR. PATIENT UP TO BATHROOM INDEPENDENTLY. TOLERATING CLEAR LIQUIDS, VOIDING WELL. PASSING GAS, NO BM. USING CPAP W/ 2L O2 BLED IN WHILE RESTING IN BED. HOSPITALIST CONSULTED FOR COMORBITIDY MANAGMENT, PER DR QIU. CALLS APPROPRIATELY, WILL REPORT TO ONCOMING RN.
--- NOTE | 2021-09-25 04:26 | NUR ---
SHIFT SUMMARY NO ACUTE CHANGES TO REPORT THIS SHIFT. INTERMITTENT ABD PAIN, MOSTLY WITH AMBULATION. RELIEVED WITH PAIN MEDS PER EMAR. TOLERATING PO INTAKE, DENIED N/V. PT HAS BEEN INDEPENDENT IN THE ROOM. IV ANTIBIOTICS CONTINUED PER ORDERS.
[2021-09-25 06:07] LABS: Bun/Creatinine Ratio 19.4 (12.0-20.0); Calcium, Blood 8.5 mg/dL (8.5-10.1); Creatinine, Blood 0.52 mg/dL (0.40-1.00); Potassium, Blood 4.1 mmol/L (3.5-5.5)
[2021-09-25 06:14] LABS: BASOPHILS ABSOLUTE AUTO 0.05 K/mm3 (0.00-0.23); BASOPHILS PERCENT AUTO 0 % (0-2); EOSINOPHILS ABSOLUTE AUTO 0.13 K/mm3 (0.00-0.68); EOSINOPHILS PERCENT AUTO 1 % (0-6); Hematocrit 36.4 % (33.0-51.0); Hemoglobin 11.3 g/dL (11.5-16.0); IMMATURE GRAN ABSOLUTE AUTO 0.08 K/mm3 (0.00-0.10); IMMATURE GRAN PERCENT AUTO 0 % (0-1); LYMPHOCYTES ABSOLUTE AUTO 1.31 K/mm3 (0.84-5.20); LYMPHOCYTES PERCENT AUTO 7 % (21-46); MONOCYTES ABSOLUTE AUTO 0.64 K/mm3 (0.16-1.47); MONOCYTES PERCENT AUTO 3 % (4-13); Mean Corpuscular HGB 26.7 pg (26.0-34.0); Mean Corpuscular Volume 86 fL (80-100); Mean Platelet Volume 10.7 fL (9.1-12.4); NEUTROPHILS PERCENT AUTO 89 % (41-73); Platelet Count 258 K/mm3 (150-400); RDW Coefficient Variation 13.7 % (11.7-14.2); RDW Standard Deviation 42.8 fL (35.1-46.3); Red Blood Cell Count 4.24 M/mm3 (3.80-5.20); White Blood Cell Count 20.11 K/mm3 (4.00-11.30)
--- NOTE | 2021-09-25 14:51 | NUR ---
SHIFT SUMMARY: ABSCESS ABOVE UTERUS PATIENT IS A&OX4. VS ARE WNL AND IS ON RA. PAIN IS MANAGED WITH PO OXY AND ALSO HAS IV TORADOL PRN. ABD IS TENDER TO TOUCH BUT IS TOLERATING HER CLEAR LIQUID TRAYS AND WILL BE TRYING A FULL LIQUID TRAY FOR DINNER. BOWEL TONES ARE ACTIVE AND PATIENT IS PASSING GAS AND VOIDING. SHE IS A SBA TO THE BATHROOM. CALLS APPROPRIATELY. CALL LIGHT WITHIN REACH. THE PLAN IS TO CONTINUE IV ABX WELL HAVE PAIN MANAGED.
--- NOTE | 2021-09-26 06:00 | NUR ---
SHIFT SUMMARY NO ACUTE CHANGES TO REPORT THIS SHIFT, PT HAS RESTED OFF AND ON T/O THE SHIFT. PT HAS BEEN UP FREQUENTLY TO THE BATHROOM THIS SHIFT. PT STILL HAS NOT HAD A BM YET, BUT HAS BEEN VOIDING ADEQUATELY. ABD PAIN HAS IMPROVED, ONLY MEDICATED FOR PAIN X1 THIS SHIFT. APPETITE IS STILL POOR, BUT PT DENIES N/V. IV ANTIBIOTICS AND FLUIDS PER ORDERS. BED IN LOWEST POSITION, CALL LIGHT WITHIN REACH.
[2021-09-26 06:05] LABS: BASOPHILS ABSOLUTE AUTO 0.04 K/mm3 (0.00-0.23); BASOPHILS PERCENT AUTO 0 % (0-2); EOSINOPHILS ABSOLUTE AUTO 0.11 K/mm3 (0.00-0.68); EOSINOPHILS PERCENT AUTO 1 % (0-6); Hematocrit 37.2 % (33.0-51.0); Hemoglobin 11.6 g/dL (11.5-16.0); IMMATURE GRAN ABSOLUTE AUTO 0.07 K/mm3 (0.00-0.10); IMMATURE GRAN PERCENT AUTO 0 % (0-1); LYMPHOCYTES ABSOLUTE AUTO 0.97 K/mm3 (0.84-5.20); LYMPHOCYTES PERCENT AUTO 6 % (21-46); MONOCYTES ABSOLUTE AUTO 0.75 K/mm3 (0.16-1.47); MONOCYTES PERCENT AUTO 4 % (4-13); Mean Corpuscular HGB 26.5 pg (26.0-34.0); Mean Corpuscular HGB Conc 31.2 g/dL (31.5-36.5); Mean Corpuscular Volume 85 fL (80-100); Mean Platelet Volume 10.3 fL (9.1-12.4); NEUTROPHILS ABSOLUTE AUTO 15.62 K/mm3 (1.96-9.15); NEUTROPHILS PERCENT AUTO 89 % (41-73); Platelet Count 278 K/mm3 (150-400); RDW Coefficient Variation 13.7 % (11.7-14.2); RDW Standard Deviation 42.5 fL (35.1-46.3); Red Blood Cell Count 4.37 M/mm3 (3.80-5.20); White Blood Cell Count 17.56 K/mm3 (4.00-11.30)
--- NOTE | 2021-09-26 17:39 | NUR ---
SUMMARY ABD PAIN THIS AM, PT ON FULL LIQUID DIET, REPORTS TOLERATING DIET FAIRLY WELL, DENIES ANY NAUSEA, AMBULATING TO THE BATHROOM, OOB THE THE CHAIR, MEDICATED ONCE FOR PAIN TODAY, PT HAD 2 BM'S TODAY, REPORTS "FEELING BETTER" THIS AFTERNOON, DENIES ANY NEED FOR PAIN MEDS AT THIS TIME, REPORTS CONT. TO HAVE "PAIN HERE AND THERE" NO ACUTE CHANGES THIS SHIFT.
--- NOTE | 2021-09-26 23:44 | NUR ---
1596 ASSUMED CARE. REPORT RECIEVED FROM MARISOL TOMLIN
[2021-09-27 04:06] LABS: BASOPHILS ABSOLUTE AUTO 0.04 K/mm3 (0.00-0.23); BASOPHILS PERCENT AUTO 0 % (0-2); EOSINOPHILS ABSOLUTE AUTO 0.14 K/mm3 (0.00-0.68); EOSINOPHILS PERCENT AUTO 1 % (0-6); Hemoglobin 10.5 g/dL (11.5-16.0); IMMATURE GRAN ABSOLUTE AUTO 0.05 K/mm3 (0.00-0.10); IMMATURE GRAN PERCENT AUTO 0 % (0-1); LYMPHOCYTES ABSOLUTE AUTO 1.17 K/mm3 (0.84-5.20); LYMPHOCYTES PERCENT AUTO 8 % (21-46); MONOCYTES ABSOLUTE AUTO 0.91 K/mm3 (0.16-1.47); MONOCYTES PERCENT AUTO 6 % (4-13); Mean Corpuscular HGB 26.9 pg (26.0-34.0); Mean Corpuscular HGB Conc 31.8 g/dL (31.5-36.5); Mean Corpuscular Volume 85 fL (80-100); Mean Platelet Volume 10.4 fL (9.1-12.4); NEUTROPHILS ABSOLUTE AUTO 12.64 K/mm3 (1.96-9.15); NEUTROPHILS PERCENT AUTO 85 % (41-73); Platelet Count 247 K/mm3 (150-400); RDW Coefficient Variation 13.6 % (11.7-14.2); RDW Standard Deviation 42.3 fL (35.1-46.3); White Blood Cell Count 14.95 K/mm3 (4.00-11.30)
--- NOTE | 2021-09-27 18:09 | NUR ---
SUMMARY PT DENIED ANY NEED FOR PAIN MEDS T/O SHIFT, SLEPT ON AND OFF T/O THE DAY, AMBULATING IN ROOM TO THE BATHROOM, AND UP TO DANGLE, DIET ADVANCED TO REG ADA, REPORTS TOLERATING WELL, DISCUSSED DIET NEEDS WITH DIVERTICULITIS W/ PT DIETITIAN ALSO ASKED TO CONSULT REGARDING DIET AND NUTRITION NEEDS, NO ACUTE CHANGES THIS SHIFT.
[2021-09-28 04:13] LABS: BASOPHILS ABSOLUTE AUTO 0.05 K/mm3 (0.00-0.23); BASOPHILS PERCENT AUTO 1 % (0-2); EOSINOPHILS ABSOLUTE AUTO 0.11 K/mm3 (0.00-0.68); EOSINOPHILS PERCENT AUTO 1 % (0-6); Hematocrit 36.9 % (33.0-51.0); Hemoglobin 11.8 g/dL (11.5-16.0); IMMATURE GRAN ABSOLUTE AUTO 0.02 K/mm3 (0.00-0.10); IMMATURE GRAN PERCENT AUTO 0 % (0-1); LYMPHOCYTES ABSOLUTE AUTO 1.19 K/mm3 (0.84-5.20); LYMPHOCYTES PERCENT AUTO 11 % (21-46); MONOCYTES ABSOLUTE AUTO 0.89 K/mm3 (0.16-1.47); MONOCYTES PERCENT AUTO 8 % (4-13); Mean Corpuscular HGB 27.3 pg (26.0-34.0); Mean Corpuscular Volume 85 fL (80-100); Mean Platelet Volume 10.7 fL (9.1-12.4); NEUTROPHILS ABSOLUTE AUTO 8.48 K/mm3 (1.96-9.15); NEUTROPHILS PERCENT AUTO 79 % (41-73); Platelet Count 311 K/mm3 (150-400); RDW Coefficient Variation 13.6 % (11.7-14.2); RDW Standard Deviation 42.5 fL (35.1-46.3); Red Blood Cell Count 4.33 M/mm3 (3.80-5.20); White Blood Cell Count 10.74 K/mm3 (4.00-11.30)
[2021-09-28 04:35] LABS: Bun/Creatinine Ratio 9.9 (12.0-20.0); Calcium, Blood 8.9 mg/dL (8.5-10.1); Creatinine, Blood 0.5 mg/dL (0.40-1.00); Magnesium, Blood 2.1 mg/dL (1.6-2.4); Phosphorus, Blood 2.6 mg/dL (2.5-4.9); Potassium, Blood 3.4 mmol/L (3.5-5.5)
--- NOTE | 2021-09-28 05:02 | NUR ---
RESERVOIR CARETAKER SUMMARY NO ACUTE CHANGES THIS SHIFT. PT AAOX4 AND INDEPENDENT IN ROOM. CONTINUES ON IV ABX. PT MEDICATED FOR PAIN AT BEDTIME. TOLERATING ADA DIET THUS FAR. VSS, WILL CONTINUE TO MONITOR.
--- NOTE | 2021-09-28 17:25 | NUR ---
SHIFT SUMMARY NO ACUTE CHANGES THIS SHIFT. PATIENT REPORTS MINIMAL ABDOMINAL "DISCOMFORT". UP TO BATHROOM INDEPENDENTLY THROUGHOUT SHIFT. TOLERATING PO DIET WELL, DENIES N/V, NO BM TODAY. VOIDING WELL. CALLS APPROPRIATELY, WILL REPORT TO ONCOMING RN.
--- NOTE | 2021-09-29 04:37 | NUR ---
Kaylene is here to receive IV abx for non-surgical abscess from diverticulitis. She is tolerating CPAP at night for COPD/LIZETT, with 2L Oxygen. She is independent in room. Right forearm IV is mildly swollen, and tender. No redness or streaking. IV flushes easily. Pain is well controlled with PRN [place] and Toradol. Tolerating po diet well. Will continue to monitor and give report to oncoming nurse.
[2021-09-29 07:13] LABS: Hematocrit 37.4 % (33.0-51.0); Hemoglobin 11.6 g/dL (11.5-16.0); Mean Corpuscular HGB 26.4 pg (26.0-34.0); Mean Corpuscular Volume 85 fL (80-100); Mean Platelet Volume 10.4 fL (9.1-12.4); Platelet Count 346 K/mm3 (150-400); RDW Coefficient Variation 13.7 % (11.7-14.2); RDW Standard Deviation 42.9 fL (35.1-46.3); Red Blood Cell Count 4.39 M/mm3 (3.80-5.20); White Blood Cell Count 10.69 K/mm3 (4.00-11.30)
--- NOTE | 2021-09-29 07:13 | NUR ---
Pt states she is nervous about going home. She believes she is ready to go home, but is concerned for transportation. Pt states she will need assistance picking up her oral medications from the pharmacy.
[2021-09-29 07:36] LABS: Albumin, Blood 2.2 g/dL (3.4-5.0); Albumin/Globulin Ratio 0.5 (0.8-1.8); Bilirubin, Total 0.1 mg/dL (0.1-1.0); Bun/Creatinine Ratio 14.4 (12.0-20.0); Calcium, Blood 8.8 mg/dL (8.5-10.1); Creatinine, Blood 0.49 mg/dL (0.40-1.00); Globulin, Blood 4.4 g/dL (2.2-4.0); Potassium, Blood 3.7 mmol/L (3.5-5.5); Total Protein, Blood 6.6 g/dL (6.4-8.2)
--- NOTE | 2021-09-29 10:01 | NUR ---
PATIENT DID NOT RECIEVE 0600 UNASYN OR 0800 FLAGYL D/T LOOSING IV ACCESS THIS AM AND PATIENT REFUSES NEW IV IF EBING DISCHARGED TODAY, NOTIFIED HOSPITALIST. BLOOD PRESSURE RUNNING HIGH THIS AM, EVEN AFTER AMLODIPINE. NOTIFIED DR TABOR AND SHE STATES SHE PLANS TO INCREASE AMLODIPINE DOSE.
[2021-09-29] MEDS ORDERED: OXYC5 PO (11:56)
[2021-09-29] MEDS ORDERED: AMLO10 PO (11:56)
[2021-09-29] MEDS ORDERED: METR500 PO (11:56)
[2021-09-29] MEDS ORDERED: AMOCLA875 PO (11:57)
--- NOTE | 2021-09-29 12:22 | NUR ---
DISCHARGE PATIENT REPORTS ABDOMINAL PAIN TO BE VERY MINIMAL AND MANAGED. TOLERATING REGULAR DIET, HAVING BM'S, PASSING GAS. INDEPENDENT IN ROOM TO BATHROOM. DENIES N/V. DISCUSSED DISCHARGE INSTRUCTIONS, SENT WITH PATIENT WELL SCRIPTS FOR AUGMENTIN, FLAGYL, & OXYCODONE. WAITING FOR PATIENT RIDE & WILL ESCORT OUT VIA W/C.
== END 2021-09-29 12:30 | disposition home or self-care (01) | DRG 391 ==
LOC: ER 21:20 → SURS 09-24 03:28
PROVIDERS: Internal Medicine; Physician Assistant; Surgery; ADMIT Surgery
DX: K57.20 Diverticulitis of large intestine with perforation and abscess without bleeding (principal); K65.1 Peritoneal abscess; Z68.41 Body mass index [BMI] 40.0-44.9, adult; J44.9 Chronic obstructive pulmonary disease, unspecified; E66.01 Morbid (severe) obesity due to excess calories; F17.210 Nicotine dependence, cigarettes, uncomplicated; G47.33 Obstructive sleep apnea (adult) (pediatric); N28.1 Cyst of kidney, acquired; E11.9 Type 2 diabetes mellitus without complications; Z98.51 Tubal ligation status; Z98.890 Other specified postprocedural states; Z99.89 Dependence on other enabling machines and devices; Z79.4 Long term (current) use of insulin; Z79.899 Other long term (current) drug therapy
CPT/HCPCS: 36415; 74176; 76705; 80048; 80053; 81001; 81025; 82947; 83690; 83735; 84100; 85025; 85027; 87086; 94660; 94760; 96374; 96375; 99285-25; A9270; J0295; J1815; J1885; J2405; J7120

== ENCOUNTER 2021-10-14 10:40 | Inpatient (IN) | payer MEDICARE ==
[~2021-10-14] VITALS: Wt 102.9 kg
[~2021-10-14 10:40] MED LIST changes: +AMLO10 PO; +AMOCLA875 PO; +BASAGLAR K100 UNIT/1 SC; +METR500 PO; +OXYC5 PO; +TRULICITY0.75 MG/01 SQ
[2021-10-14 11:16] LABS: BASOPHILS ABSOLUTE AUTO 0.07 K/mm3 (0.00-0.23); BASOPHILS PERCENT AUTO 1 % (0-2); EOSINOPHILS ABSOLUTE AUTO 0.08 K/mm3 (0.00-0.68); EOSINOPHILS PERCENT AUTO 1 % (0-6); Hematocrit 40.8 % (33.0-51.0); Hemoglobin 12.7 g/dL (11.5-16.0); IMMATURE GRAN ABSOLUTE AUTO 0.04 K/mm3 (0.00-0.10); IMMATURE GRAN PERCENT AUTO 0 % (0-1); LYMPHOCYTES ABSOLUTE AUTO 1.67 K/mm3 (0.84-5.20); LYMPHOCYTES PERCENT AUTO 13 % (21-46); MONOCYTES ABSOLUTE AUTO 0.89 K/mm3 (0.16-1.47); MONOCYTES PERCENT AUTO 7 % (4-13); Mean Corpuscular HGB 25.9 pg (26.0-34.0); Mean Corpuscular HGB Conc 31.1 g/dL (31.5-36.5); Mean Corpuscular Volume 83 fL (80-100); Mean Platelet Volume 9.7 fL (9.1-12.4); NEUTROPHILS ABSOLUTE AUTO 10.51 K/mm3 (1.96-9.15); NEUTROPHILS PERCENT AUTO 79 % (41-73); Platelet Count 527 K/mm3 (150-400); RDW Coefficient Variation 14.6 % (11.7-14.2); RDW Standard Deviation 44.3 fL (35.1-46.3); White Blood Cell Count 13.26 K/mm3 (4.00-11.30)
--- NOTE | 2021-10-14 11:25 | NUR ---
PATIENT WAS A DIRECT ADMIT TODAY 10/14/21 AT 1050. PATIENT IS A&OX4. VS ARE WNL AND IS ON RA WITH >90% OXYGEN STATS. THOUGH PATIENT STATED "SOMETIMES I'LL PUT ON MY BIPAP IF IM FEELING SHORT OF BREATH EVEN DURING THE DAY". PATIENT DID BRING HER OWN BIPAP. ABD IS TENDER TO TOUCH AND PAIN RADIATES TO HER BACK. SHE IS VOIDING AND PASSING GAS. HAS NOT EATEN A FULL MEAL SINCE YESTERDAY AT AROUND NOON. BOWEL TONES ARE HYPOACTIVE. SHE DENIES NAUSEA AND VOMITING AT THIS TIME. PATIENT IS LAYING IN BED WITH FAMILY AT BEDSIDE. CALL LIGHT WITHIN REACH.
[2021-10-14 12:05] LABS: Albumin, Blood 2.3 g/dL (3.4-5.0); Albumin/Globulin Ratio 0.5 (0.8-1.8); Bilirubin, Total 0.3 mg/dL (0.1-1.0); Bun/Creatinine Ratio 16.6 (12.0-20.0); Calcium, Blood 9.2 mg/dL (8.5-10.1); Creatinine, Blood 0.48 mg/dL (0.40-1.00); Globulin, Blood 5.1 g/dL (2.2-4.0); Potassium, Blood 4.1 mmol/L (3.5-5.5); Total Protein, Blood 7.4 g/dL (6.4-8.2)
--- NOTE | 2021-10-14 14:40 | NUR ---
SHIFT SUMMARY: DIVERTIC ABSCESS NO SIGNIFICANT CHANGES SINCE BEING TRANSFERRED TO FLOOR. PATIENT IS A&OX4. VS ARE WNL AND IS ON HER BIPAP INTERMITTENTLY PRN. PATIENT REPORTS "I DO THIS AT HOME WHEN I NAP AND/OR WHEN I FEEL SHORT OF BREATH". PAIN IS MANAGED WITH IV MORPHINE. SHE IS TOLERATING SMALL SIPS OF CLEARS AT THIS TIME. PATIENT IS RECEVING IV FLUIDS AND ABX. ABD IS TENDER TO TOUCH BUT IS SOFT. SHE IS ABLE TO VOID AND PASS GAS. PATIENT IS A SBA TO THE BATHROOM BUT HAS AN URGENCY TO VOID AT TIMES SO A BSC IS IN PLACE. CALLS APPROPRIATELY. CALL LIGHT WITHIN REACH. THE PLAN IS FOR THE PATIENT TO BE COMPLETELY NPO TONIGHT AT MIDNIGHT FOR A CT GUIDED TUBE PLACEMENT FOR WHERE THE ABSCESS IS.
--- NOTE | 2021-10-14 15:30 | NUR ---
ASSUMED CARE OF PATIENT. PATIENT RESTIING IN BED WITH CPAP ON, MEDICATED WITH TYLENOL BY PREVIOUS RN. NO QUESTIONS OR CONCERNS FROM PATIENT AT THIS TIME. CALL LIGHT IN REACH.
--- NOTE | 2021-10-14 19:32 | NUR ---
NO ACUTE CHANGES SINCE ASSUMPTION OF CARE. PATIENT RESTING IN BED THROUGHOUT EVENING, TOLERATIING CLEAR LIQUIDS. MODERATE ABDOMINAL PAIN, MEDICATED PER EMAR. CALLS APPROPRIATLY, REPORT GIVEN TO BING TOMLIN.
--- NOTE | 2021-10-15 04:19 | NUR ---
SHIFT SUMMARY NO ACUTE CHANGES. PT NPO SINCE MIDNIGHT FOR PROCEDURE TODAY. MORPHINE/TYLENOL FOR PAIN MANAGEMENT. IVF + ABX PER ORDERS. INDEP TO BRP. PT RESTED WELL T/O SHIFT. USES CALL LIGHT APPROPRIATELY.
[2021-10-15 04:43] LABS: BASOPHILS ABSOLUTE AUTO 0.06 K/mm3 (0.00-0.23); BASOPHILS PERCENT AUTO 1 % (0-2); EOSINOPHILS ABSOLUTE AUTO 0.15 K/mm3 (0.00-0.68); EOSINOPHILS PERCENT AUTO 1 % (0-6); Hematocrit 41.5 % (33.0-51.0); Hemoglobin 12.7 g/dL (11.5-16.0); IMMATURE GRAN ABSOLUTE AUTO 0.03 K/mm3 (0.00-0.10); IMMATURE GRAN PERCENT AUTO 0 % (0-1); LYMPHOCYTES ABSOLUTE AUTO 1.46 K/mm3 (0.84-5.20); LYMPHOCYTES PERCENT AUTO 13 % (21-46); MONOCYTES ABSOLUTE AUTO 0.83 K/mm3 (0.16-1.47); MONOCYTES PERCENT AUTO 7 % (4-13); Mean Corpuscular HGB 25.9 pg (26.0-34.0); Mean Corpuscular HGB Conc 30.6 g/dL (31.5-36.5); Mean Corpuscular Volume 85 fL (80-100); Mean Platelet Volume 9.9 fL (9.1-12.4); NEUTROPHILS ABSOLUTE AUTO 8.95 K/mm3 (1.96-9.15); NEUTROPHILS PERCENT AUTO 78 % (41-73); Platelet Count 424 K/mm3 (150-400); RDW Coefficient Variation 14.5 % (11.7-14.2); RDW Standard Deviation 44.8 fL (35.1-46.3); White Blood Cell Count 11.48 K/mm3 (4.00-11.30)
[2021-10-15 05:05] LABS: Bun/Creatinine Ratio 11.5 (12.0-20.0); Calcium, Blood 8.9 mg/dL (8.5-10.1); Creatinine, Blood 0.52 mg/dL (0.40-1.00); Potassium, Blood 4.1 mmol/L (3.5-5.5)
[2021-10-15 10:29] LABS: International Normalized Ratio 1.16; Prothrombin Time Results 12.1 Sec (9.7-11.5)
--- NOTE | 2021-10-15 14:04 | NUR ---
PT TO PROCEDURE AT THIS TIME.
--- NOTE | 2021-10-15 18:56 | NUR ---
SHIFT SUMMARY PT S/P FOR PERC DRAIN PLACEMENT GUIDED BY CT. PT C/O ABD CRAMPING AND TREATED PER EMR. ACCORDIAN DRAIN WITH URESIL IN PLACE AND DRAINING FOUL, LIGHT BROWN FLUID. PT TOLERATING FULL LIQUID DIET WELL. VSS. REPORT GIVEN TO YUNIEL TOMLIN.
--- NOTE | 2021-10-16 04:15 | NUR ---
SUMMARY NO NEW ISSUES NOTED. PT UROSIL DRAIN DRAINING WELL. PT PAIN MANAGED WELL PER EMAR. PT HAS BEEN SLEEPING OFF AND ON WITH CPAP. CALL LIGHT IN REACH.
--- NOTE | 2021-10-16 13:18 | NUR ---
IV RAC D/C'D INTACT, SITE CLEAR.
--- NOTE | 2021-10-16 17:49 | NUR ---
SHIFT SUMMARY PT POD #[address] GUIDED PERC DRAIN PLACEMENT. DRAIN TO THE L FLANK AND DRAINING SS FLUID. PAIN SEEMS TO BE IMPROVED SINCE DRAIN PLACEMENT. PT TOLERATING DIET WELL. VSS.
--- NOTE | 2021-10-17 06:02 | NUR ---
SUMMARY NO NEW CHANGES NOTED. PT DRAIN IS DRAINING BROWN PURULENT FLUID THIS SHIFT, 75 ML. PT REPORTED SOME ABD AND DRAIN SITE DISCOMFORT THIS AM. PT TX PER EMAR WITH RELIEF. PT EATING AND DRINKING. PT VOIDING AND HAVING BM'S. PT CURRENTLY SLEEPING.
--- NOTE | 2021-10-17 16:28 | NUR ---
SHIFT SUMMARY PT HAS REPORTED PAIN TOLERABLE DURING SHIFT. PT HAS BEEN AMBULATING TO RESTROOM EVERY HOUR. TOLERATING WELL. DRAIN REMAINS PATENT PURULENT BROWN DRAINAGE REMAINS IN DRAIN. NO NAUSEA REPORTED. TOLERATING DIET WELL. PLAN IS TO REPEAT IMAGINE TOMORROW.
--- NOTE | 2021-10-18 05:45 | NUR ---
GEL COAT SPRAYER SUMMARY NO CHANGES TO COLOR OR AMOUNT OF DRAINAGE, VERY MINIMAL AMOUNT. PT DID REQUEST PAIN MEDS FOR THE FIRST TIME IN 2 DAYS. PAIN MANAGED WITH 1 TAB OF NORCO 5/325. PT HAS SLEPT MOST OF THE NIGHT. VSS, NITISH.
[2021-10-18 06:04] LABS: BASOPHILS ABSOLUTE AUTO 0.07 K/mm3 (0.00-0.23); BASOPHILS PERCENT AUTO 1 % (0-2); EOSINOPHILS PERCENT AUTO 2 % (0-6); Hematocrit 41.4 % (33.0-51.0); Hemoglobin 12.9 g/dL (11.5-16.0); IMMATURE GRAN ABSOLUTE AUTO 0.03 K/mm3 (0.00-0.10); IMMATURE GRAN PERCENT AUTO 0 % (0-1); LYMPHOCYTES ABSOLUTE AUTO 2.31 K/mm3 (0.84-5.20); LYMPHOCYTES PERCENT AUTO 26 % (21-46); MONOCYTES ABSOLUTE AUTO 0.59 K/mm3 (0.16-1.47); MONOCYTES PERCENT AUTO 7 % (4-13); Mean Corpuscular HGB Conc 31.2 g/dL (31.5-36.5); Mean Corpuscular Volume 84 fL (80-100); Mean Platelet Volume 9.8 fL (9.1-12.4); NEUTROPHILS ABSOLUTE AUTO 5.76 K/mm3 (1.96-9.15); NEUTROPHILS PERCENT AUTO 64 % (41-73); Platelet Count 503 K/mm3 (150-400); RDW Coefficient Variation 14.7 % (11.7-14.2); RDW Standard Deviation 44.2 fL (35.1-46.3); Red Blood Cell Count 4.96 M/mm3 (3.80-5.20); White Blood Cell Count 8.96 K/mm3 (4.00-11.30)
[2021-10-18 06:23] LABS: Calcium, Blood 9.1 mg/dL (8.5-10.1); Creatinine, Blood 0.5 mg/dL (0.40-1.00); Potassium, Blood 3.8 mmol/L (3.5-5.5)
[2021-10-18] MEDS ORDERED: ACET325 PO (16:18)
[2021-10-18] MEDS ORDERED: FLUC150A PO (16:19)
[2021-10-18] MEDS ORDERED: AMOX875 PO (16:19)
--- NOTE | 2021-10-18 17:02 | NUR ---
DISCHARGE: PACKET PRINTED AND PT EDUCATED. PT EDUCATED ON DRAIN CARE AND MANAGEMENT, GIVEN OUTPUT LOG. PT LEFT UNIT VIA WHEELCHAIR AT ABOUT 1700 WITH FLORESITA MACHUCA
[2021-11-02] MEDS ORDERED: OXYC5 PO (10:29)
== END 2021-10-18 16:58 | disposition home or self-care (01) | DRG 391 ==
LOC: SURS 10:40
PROVIDERS: ADMIT Surgery
PROC: 3E03329 Introduction of Other Anti-infective into Peripheral Vein, Percutaneous Approach (ICD-10-PCS; principal; 2021-10-14)
PROC: 0W9J30Z Drainage of Pelvic Cavity with Drainage Device, Percutaneous Approach (ICD-10-PCS; 2021-10-15)
PROC: 5A09357 Assistance with Respiratory Ventilation, Less than 24 Consecutive Hours, Continuous Positive Airway Pressure (ICD-10-PCS; 2021-10-16)
DX: K57.20 Diverticulitis of large intestine with perforation and abscess without bleeding (principal); K65.1 Peritoneal abscess; E11.9 Type 2 diabetes mellitus without complications; J44.9 Chronic obstructive pulmonary disease, unspecified; I10 Essential (primary) hypertension; E66.01 Morbid (severe) obesity due to excess calories; Z98.890 Other specified postprocedural states; G47.30 Sleep apnea, unspecified; Z98.51 Tubal ligation status; N73.9 Female pelvic inflammatory disease, unspecified
CPT/HCPCS: 36415; 49405; 74177; 80048; 80053; 82947; 85025; 85610; 85730; 87070; 87075; 87106; 87205; 94660; 94760; A9270; J1815; J2270; J2543; J7040; J7120; Q9967

== ENCOUNTER 2021-11-11 07:35 | Inpatient (IN) | payer MEDICARE ==
[~2021-11-11 07:35] MED LIST changes: +ACET325 PO; +AMOX875 PO; +FLUC150A PO; +INSULANI SC; +OXYGEN; +[UNRECOGNIZED DRUG - OTHER] INH
--- NOTE | 2021-11-11 08:40 | NUR ---
2 ATTEMPTS BY RYAN TOMLIN, OTHERS BY FILIBERTO Saxena RN
[2021-11-12 05:28] LABS: BASOPHILS ABSOLUTE AUTO 0.02 K/mm3 (0.00-0.23); BASOPHILS PERCENT AUTO 0 % (0-2); EOSINOPHILS PERCENT AUTO 0 % (0-6); Hematocrit 34.8 % (33.0-51.0); Hemoglobin 11.3 g/dL (11.5-16.0); IMMATURE GRAN ABSOLUTE AUTO 0.06 K/mm3 (0.00-0.10); IMMATURE GRAN PERCENT AUTO 0 % (0-1); LYMPHOCYTES ABSOLUTE AUTO 1.16 K/mm3 (0.84-5.20); LYMPHOCYTES PERCENT AUTO 8 % (21-46); MONOCYTES ABSOLUTE AUTO 0.63 K/mm3 (0.16-1.47); MONOCYTES PERCENT AUTO 4 % (4-13); Mean Corpuscular HGB 26.7 pg (26.0-34.0); Mean Corpuscular HGB Conc 32.5 g/dL (31.5-36.5); Mean Corpuscular Volume 82 fL (80-100); Mean Platelet Volume 9.7 fL (9.1-12.4); NEUTROPHILS ABSOLUTE AUTO 12.58 K/mm3 (1.96-9.15); NEUTROPHILS PERCENT AUTO 87 % (41-73); Platelet Count 442 K/mm3 (150-400); RDW Coefficient Variation 14.8 % (11.7-14.2); RDW Standard Deviation 44.4 fL (35.1-46.3); Red Blood Cell Count 4.24 M/mm3 (3.80-5.20); White Blood Cell Count 14.45 K/mm3 (4.00-11.30)
[2021-11-12 05:50] LABS: Bun/Creatinine Ratio 16.2 (12.0-20.0); Calcium, Blood 8.6 mg/dL (8.5-10.1); Creatinine, Blood 0.5 mg/dL (0.40-1.00); Magnesium, Blood 2.2 mg/dL (1.6-2.4); Phosphorus, Blood 2.6 mg/dL (2.5-4.9); Potassium, Blood 4.1 mmol/L (3.5-5.5)
--- NOTE | 2021-11-12 06:19 | NUR ---
SHIFT SUMMARY: PT HAD NAUSEA THAT DEVELOPED DURING THE SHIFT. ZOFRAN GIVEN WITH MILD RELIEF. ADDITIONAL ANTIEMETICS WAS ORDERED. PT WAS TREATED AND RESPONDED WELL. PAIN WAS MANAGED WELL T/O THE NIGHT AND PT WAS ABLE TO GET SOME REST. BIPAP IN PLACE. NUNEZ DRAINING TO GRAVITY. PT ENCOURAGED TO REPOSITION AND DEEP BREATH. CALL LIGHT REMAINS IN REACH.
--- NOTE | 2021-11-12 11:22 | NUR ---
Pt. is sitting up in a recliner. Pt. is unsettled by the prognosis of recovery from her surgery, and the need for a colostomy. Pt. is also unsettled about family/job stresses in her family. Listen empatheticially, and re-establish rapport, as this financial coach had met with this Pt. in a previous hospitalization. Pt. displays evidence of visceral pain when she coughs. Prayed with pt. Pt. verbalized gratitude for the spiritual care visit.
--- NOTE | 2021-11-12 18:41 | NUR ---
SHIFT SUMMARY PT A&OX4, VSS/RA, ELIO PO SIPS/CHIPS, VOIDING, AMB SBA FWW & GB TO BRP/HALLWAY, UP TO CHAIR, PAIN MANAGED WITH STAFF NUCLEAR WEAPONS OFFICER DEMAND. WILL REPORT TO ONCOMING NOC RN.
--- NOTE | 2021-11-13 04:10 | NUR ---
POD2 FOR A SIGMOID COLECTOMY WITH AN OSTOMY PLACEMENT IN THE LUQ. VSS, BP NOTED TO BE ELEVATED WHEN THE PT AMBULATED. 2L OF O2 TO KEEP SATS >90% WHEN OOB. PATIENT EDUCATED ON I/S USE, T/C/DB, AND SPLINTING WHEN COUGHING. PT APPEARS TO BE NOT RECEPTIVE TO THIS INFORMATION AND BECOMES UPSET WHEN THESE METHODS OF PULMONARY TOILETING IS MENTIONED. PATIENT ENCOURAGED TO MOBILIZE AND REPOSITION SELF IN BED, PT NEEDING FREQUENT ENCOURAGEMENT AND REASSURANCE. PAIN MANAGED WITH PCS, REPORTED RELIEF. TOLLERATED SMALL AMOUNTS OF CLEARS. DENIES N/V. NO OUTPUT FROM OSTOMY, STOOL OR FLATTUS. CHERELLE MIDLINE C/D/I, COMPRESSED WELL. MINIMAL SEROSANGUINEOUS DRAINAGE NOTED. J/P DRAIN PUTTING OUT LARGE AMOUNTS OF LIGHT PINK SS FLUID, BULB COMPRESSED. PT VOIDING W/O DIFFICULTY. USING CALL LIGHT APPROPRIATELY.
--- NOTE | 2021-11-13 16:38 | NUR ---
SHIFT SUMMARY POD 2 SIG COLECTOMY WITH NEW OSTOMY MIDLINE PICCO UNCHANGED FROM THIS MORNING. STOMA PINK AND BEEFY, SMALL AMOUNT SEROSANGUINOUS DRAINAGE IN BAG, NO FLATUS. PT TOLERATING CLEAR LIQUIDS WELL, MEDICATED FOR NAUSEA X1. PAIN MANAGED WITH ORAL MEDICATIONS WELL. PT UP AND AMBULATING DURING SHIFT, STRENGTH IMPROVING. NEW IV INFUSING AT THIS TIME.
--- NOTE | 2021-11-14 05:13 | NUR ---
POD3 FOR A SIGMOID COLECTOMY WITH AN OSTOMY PLACEMENT. VSS, PT NOTED TO HAVE HTN, MEDICATED PER EMAR. THE PT SLEPT ON AND OFF T/O THE NIGHT. PAIN WAS MANAGED WELL WITH ROTATING THE TYLENOL AND OXY. PT AMBULATED MULTIPLE TIMES TO THE BATHROOM TO VOID. NO OUTPUT FROM THE OSTOMY OR FLATTUS. BOWEL TONES NOTED. PT IS CURRENTLY SLEEPING, IN NO DISTRESS, CALL LIGHT IN REACH
--- NOTE | 2021-11-14 16:18 | NUR ---
Pt. is sittin up on the side of bed preparing to go for a supported walk with the WATCHGUARD. Pt. welcomes my visit. Pt. is very unsettled about the prospect of being discharged too soom. Pt. verbalizes that she has not had solid foods and with the surgery she had that she hasn't even attempted to digest anything. Listen empathetically with a calming presence. Pt. displays evidence of skepticism. With pastoral counselor marriage and family and normalizing the Pt. expereince the Pt. displays a greater sense of compliance. Prayed with Pt. Pt. verbalizes gratitude for the spiritual care visit. Nurse arrives to provide oral pain medication.
--- NOTE | 2021-11-14 17:21 | NUR ---
SHIFT SUMMARY AA0X4, PT UP AND AMBULATING T/O SHIFT. PAIN MANAGED WITH ORAL MEDS, PT REPORTS PAIN IMPROVING, MOSTLY IN LOWER BACK. OSTOMY CHANGED TODAY 2-3/4 INCH APPLIANCE. MIDLINE PICCO CHANGED WITH DR. HOWELL. PT TOLERATED WELL, FREQUENTLY ASKING QUESTIONS, MOTIVATED TO LEARN. TOLERATING CLEAR LIQUID DIET, BOWEL SOUNDS HYPOACTIVE, NO FLATUS OR BM AT THIS TIME. NO SOB, REMAINS ON ROOM AIR.
--- NOTE | 2021-11-15 03:54 | NUR ---
POD4 FOR A SIGMOID COLECTOMY WITH AN OSTOMY PLACEMENT. VSS, PT NOTED TO BE ELEVATED. MEDICATED PER EMAR ONCE FOR THIS. THE PT SLEPT ON AND OFF T/O THE NIGHT. AMBULATED TO THE BATHROOM MULTIPLE TIMES AND VOIDED W/O DIFFICULTY. SHE HAS BEEN ABLE TO ROLL OVER IN BED INDEPENDENTLY AND BE A SBA W/FWW TO THE BATHROOM/IN HALLWAY. TOLLERATING PO INTAKE WELL. THE PT HAD TWO EPISODES OF FLATTUS TONIGHT, PT HAS NOT REPORTED RELIEF WITH THESE EPISODES. SHE WAS ABLE TO VENT THE OSTOMY BAG INDEPENDENTLY WITH THE SECOND EPISODE. CHERELLE DRESSING REMAINS C/D/I, COMPRESSED COMPLETELY. DRESSING OVER ALFREDO REMOVAL SITE REMAINS C/D/I. PAIN HAS BEEN CONTROLLED PER THE EMAR. NO THE PT IS CURRENTLY RESTING, IN NO DISTRESS.
--- NOTE | 2021-11-15 18:45 | NUR ---
SUMMARY: NO ACUTE CHANGE TODAY. VSS, A/0. SURGICAL SITE/CHERELLE AND OSTOMY WNL TODAY. FLATUS NOTED THIS MORNING IN BAG, NO OUTPUT. PT HAS HAD INTERMITTANT NAUSEA AND ONLY ABLE TO TAKE IN SMALL SIPS OF FLUIDS. PT HAS HAD MINIMAL PAIN, MEDICATED WITH FENTANYAL X1 AFTER A WALK. PT ENCOURAGED TO GET UP TO CHAIR, WALK IN HALLS, AND MOVE MUCH POSSIBLE. NO SAFETY CONCERNS, WILLREPORT TO NOC RN
--- NOTE | 2021-11-16 08:33 | NUR ---
PT REQUESTING IV PAIN MEDS TONIGHT.DENIED NAUSEA.OSTOMY WITH STOOL OUTPUT.
--- NOTE | 2021-11-16 17:10 | NUR ---
SUMMARY PT POD 5. REFUSING PO MEDS. PT STATES PLANS TO RESUME PO MEDS ONCE ADVANCED TO REGULAR DIET. ADVANCED TO FULL LIQUID FOR LUNCH, TOLERATED WELL. OSTOMY PUTTING OUT DARK BROWN/GREEN LIQUID STOOL. APPLIANCE LEAKED THIS AFTERNOON, PLACED NEW. PT OBSERVED AND ASKED QUESTIONS BUT IS VERY ANXIOUS ABOUT CARING FOR IT. MEDICATED PT PER ORDERS FOR PAIN. WORKED WITH THERAPY THIS AM. SAT UP ON SIDE OF BED FOR COUPLE HOURS THIS MORNING AND THEN AGAIN AT LUNCH. AMBULATED IN [place] W/RECREATIONAL VEHICLE REPAIRER THIS EVENING. CALL LIGHT IN REACH.
--- NOTE | 2021-11-16 17:34 | NUR ---
REPORT GIVEN TO DAPHNE Garcia RN.
--- NOTE | 2021-11-17 09:00 | NUR ---
summary no acute changes tonight.
--- NOTE | 2021-11-17 14:20 | NUR ---
OSTOMY APPLIANCE LEAKED PLACED NEW. PT WATCHED AND ASKED QUESTIONS.
--- NOTE | 2021-11-17 18:04 | NUR ---
SUMMARY NO ACUTE CHANGES T/O SHIFT. PT SAT UP ON EDGE OF BED AND AMBULATED IN SEBASTIAN. OSTOMY APPLIANCE LEAKED, CHANGED WHILE WALKING PT THROUGHT PROCESS. PT'S PAIN MANAGED W/SCHEDULED TYLENOL THIS AFTERNOON. CALL LIGHT IN REACH.
--- NOTE | 2021-11-18 06:54 | NUR ---
SUMMARY PT CALLED RN AND ADVISED SOMEHOW HER POWER GLIDE TUBING WAS RESTING IN HER BED DISCONNECTED FROM ITS HUB.DRESSING REMAINED INTACT. NO BLEEDING NOTED. PCU CHIEF WHARFINGER AKIRA WAS ASKED TO RM BY THIS RN TO CHECK AND HE REPORTED HE CAN REPLACE TUBING USING STERIL TECHNIQUE AND IS WITH PT AT THIS TIME. PT WITH NO NAUISEA THIS SHIFT. OSTOMY WITH DECREASING AMNT OF STOOL. SOFT NON FORMED IN SMALL AMNT AND ALSO SMALL AMNT SOFT FORMED VELA STOOL FURTHER UP TOWARD STOMA SITE.
--- NOTE | 2021-11-18 16:01 | NUR ---
SHIFT SUMMARY AA0X4, PT AMBULATING HALLS MORE FREQUENTLY TODAY. IND IN ROOM, NO WEAKNESS NOTED. PAIN WELL CONTROLLED PER EMAR. MEDICATED X1. PT ABLE TO EMPTY APPLIANCE ON HER OWN WITH THIS RN IN ROOM. PT EXPRESSED THAT SHE FEELS BETTER ABOUT SITUATION AT THIS TIME. PLAN IS TO CHANGE APPLIANCE PRIOR TO DISCHARGE TOMORROW. PT HAS ASKED FREQUENT QUESTIONS AND IS ENGAGED DURING TEACHING. DIETITIAN PROVIDED SOME EDUCATION FOR PATIENT WHILE HELPED TO ALLEVIATE SOME CONCERNS.
--- NOTE | 2021-11-19 04:21 | NUR ---
SHIFT SUMMARY NO ACUTE CHANGES. PT RESTING WELL. 1 ROXICODONE FOR PAIN PRN. BRIAN TO MIDLINE ARE CDI AND NISHI. OSTOMY WITH SOFT FORMED STOOL. ENCOURAGING PT TO MANAGE OSTOMY INDEPENDENTLY + CONT TO PROVIDE MORE EDUCATION. INDEP IN ROOM. AMBULATED HALLWAY X1 THIS SHIFT. PT PLANNING TO DC HOME TODAY. CALL LIGHT WITHIN REACH.
[2021-11-19] MEDS ORDERED: Percocet 5-3251 EACH PO (09:02)
--- NOTE | 2021-11-19 10:24 | NUR ---
OSTOMY APPLIANCE CHANGED AT THIS TIME. 2-05/17 WITH A BARRIER RING USED FOR CONVEXITY. PATIENT ENGAGED AND ASKED QUESTIONS DURING CHANGE. APPEARS HOPEFUL FOR ABILITY TO EMPTY AND BURP HER OWN APPLIANCE.
--- NOTE | 2021-11-19 15:05 | NUR ---
DISCHARGE PT LEFT VIA WHEELCHAIR AT 1500 ALL INSTRUCTIONS GONE OVER WITH PATIENT. OSTOMY EDUCATION PROVIDED EXTENSIVELY TODAY. WENT OVER BURPING AND EMPTYING AGAIN AND DID AN APPLIANCE CHANGE WITH PATIENT. SHE ACTIVELY ASKED QUESTIONS AND WAS ENGAGED. POWERGLIDE REMOVED. PT TOLERATED WELL. BUT REPORTS STILL FEELING ANXIOUS BUT IS REASSURED THAT HOME HEALTH WILL BE FOLLOWING HER. OSTOMY CONTINUES TO HAVE LARGE AMOUNT OF SOFT BROWN OUTPUT. FLATUS INCREASING DURING SHIFT. PT BURPS ON HER OWN. DENIED PAIN DURING SHIFT. PRESCRIPTION SENT WITH PATIENT ALL BELONGINGS WITH PATIENT.
== END 2021-11-19 15:00 | disposition home health service (06) | DRG 329 ==
LOC: SURS 07:35 → PRE IP 09:00 → SURS 14:29
PROVIDERS: ADMIT Surgery
PROC: 0D1M0Z4 Bypass Descending Colon to Cutaneous, Open Approach (ICD-10-PCS; 2021-11-11)
PROC: 0DBN0ZZ Excision of Sigmoid Colon, Open Approach (ICD-10-PCS; principal; 2021-11-11 09:00)
DX: K57.20 Diverticulitis of large intestine with perforation and abscess without bleeding (principal); K65.1 Peritoneal abscess; J44.9 Chronic obstructive pulmonary disease, unspecified; I10 Essential (primary) hypertension; Z88.8 Allergy status to other drugs, medicaments and biological substances; E66.01 Morbid (severe) obesity due to excess calories; G47.33 Obstructive sleep apnea (adult) (pediatric); E11.9 Type 2 diabetes mellitus without complications; Z98.890 Other specified postprocedural states; Z98.51 Tubal ligation status; Z79.899 Other long term (current) drug therapy; Z79.4 Long term (current) use of insulin; F17.210 Nicotine dependence, cigarettes, uncomplicated
CPT/HCPCS: 36415; 80048; 82947; 83735; 84100; 85025; 86850; 86900; 86901; 88307; 94660; 94760; 94762; 97110; 97162; 97530; A9270; J0295; J0360; J0690; J1650; J1815; J2250; J2405; J2765; J2795; J3010; J7050; J7120

== ENCOUNTER → 2021-12-13 | Outpatient (CLI) | payer MEDICARE ==
[~2021-12-13] MED LIST changes: +Hydrochloroth12.5 MG PO; +Percocet 5-3251 EACH PO
== END | disposition home or self-care (01) ==
LOC: LAB 14:24 → LAB SHORT 14:24
DX: L02.11 Cutaneous abscess of neck (principal)
CPT/HCPCS: 87070; 87075; 87147; 87205

== ENCOUNTER 2021-12-21 13:22 | Emergency (ER) | payer MEDICARE ==
[~2021-12-21] VITALS: Ht 157.5 cm; Wt 99.3 kg
[~2021-12-21 13:22] MED LIST changes: -Hydrochloroth12.5 MG PO
[2021-12-21 14:38] LABS: BASOPHILS ABSOLUTE AUTO 0.06 K/mm3 (0.00-0.23); BASOPHILS PERCENT AUTO 1 % (0-2); EOSINOPHILS ABSOLUTE AUTO 0.11 K/mm3 (0.00-0.68); EOSINOPHILS PERCENT AUTO 1 % (0-6); Hematocrit 40.1 % (33.0-51.0); Hemoglobin 12.8 g/dL (11.5-16.0); IMMATURE GRAN ABSOLUTE AUTO 0.03 K/mm3 (0.00-0.10); IMMATURE GRAN PERCENT AUTO 0 % (0-1); LYMPHOCYTES ABSOLUTE AUTO 2.05 K/mm3 (0.84-5.20); LYMPHOCYTES PERCENT AUTO 21 % (21-46); MONOCYTES ABSOLUTE AUTO 0.43 K/mm3 (0.16-1.47); MONOCYTES PERCENT AUTO 5 % (4-13); Mean Corpuscular HGB 26.8 pg (26.0-34.0); Mean Corpuscular HGB Conc 31.9 g/dL (31.5-36.5); Mean Corpuscular Volume 84 fL (80-100); Mean Platelet Volume 10.2 fL (9.1-12.4); NEUTROPHILS ABSOLUTE AUTO 6.96 K/mm3 (1.96-9.15); NEUTROPHILS PERCENT AUTO 72 % (41-73); Platelet Count 424 K/mm3 (150-400); RDW Coefficient Variation 15.1 % (11.7-14.2); RDW Standard Deviation 46.5 fL (35.1-46.3); Red Blood Cell Count 4.77 M/mm3 (3.80-5.20); White Blood Cell Count 9.64 K/mm3 (4.00-11.30)
[2021-12-21 15:00] LABS: Albumin, Blood 2.8 g/dL (3.4-5.0); Albumin/Globulin Ratio 0.7 (0.8-1.8); Bilirubin, Total 0.2 mg/dL (0.1-1.0); Bun/Creatinine Ratio 12.1 (12.0-20.0); Calcium, Blood 9.2 mg/dL (8.5-10.1); Creatinine, Blood 0.74 mg/dL (0.40-1.00); Globulin, Blood 4.3 g/dL (2.2-4.0); Potassium, Blood 4.2 mmol/L (3.5-5.5); Total Protein, Blood 7.1 g/dL (6.4-8.2)
[2021-12-21] MEDS ORDERED: Hydrochloroth12.5 MG PO (15:48)
== END 2021-12-21 16:21 | disposition home or self-care (01) ==
LOC: ER 13:22
PROVIDERS: Physician Assistant
DX: I10 Essential (primary) hypertension (principal); E11.9 Type 2 diabetes mellitus without complications; J44.9 Chronic obstructive pulmonary disease, unspecified; F17.210 Nicotine dependence, cigarettes, uncomplicated; Z88.8 Allergy status to other drugs, medicaments and biological substances; Z79.899 Other long term (current) drug therapy; Z79.4 Long term (current) use of insulin
CPT/HCPCS: 36415; 80053; 84484; 85025; 93005; 93010; 99284-25

== ENCOUNTER 2022-05-28 16:58 | Inpatient (IN) | payer MEDICARE ==
[~2022-05-28] VITALS: Ht 157.5 cm; Wt 101.5 kg
[~2022-05-28 16:58] MED LIST changes: +AMLODIPINE BESYL5 MG PO; +ANORO ELLIPTA1 EACH INH; +DOXY100 PO; +Hydrochloroth12.5 MG PO; +PRED20 PO; +TRULICITY0.75 MG/01 SC; -TRULICITY0.75 MG/01 SQ
[2022-05-28 18:17] LABS: BASOPHILS ABSOLUTE AUTO 0.06 K/mm3 (0.00-0.23); BASOPHILS PERCENT AUTO 1 % (0-2); EOSINOPHILS PERCENT AUTO 1 % (0-6); Hematocrit 46.4 % (33.0-51.0); Hemoglobin 14.7 g/dL (11.5-16.0); IMMATURE GRAN ABSOLUTE AUTO 0.02 K/mm3 (0.00-0.10); IMMATURE GRAN PERCENT AUTO 0 % (0-1); LYMPHOCYTES ABSOLUTE AUTO 1.11 K/mm3 (0.84-5.20); LYMPHOCYTES PERCENT AUTO 15 % (21-46); MONOCYTES ABSOLUTE AUTO 0.76 K/mm3 (0.16-1.47); MONOCYTES PERCENT AUTO 11 % (4-13); Mean Corpuscular HGB 27.2 pg (26.0-34.0); Mean Corpuscular HGB Conc 31.7 g/dL (31.5-36.5); Mean Corpuscular Volume 86 fL (80-100); Mean Platelet Volume 10.7 fL (9.1-12.4); NEUTROPHILS ABSOLUTE AUTO 5.16 K/mm3 (1.96-9.15); NEUTROPHILS PERCENT AUTO 72 % (41-73); Platelet Count 230 K/mm3 (150-400); RDW Coefficient Variation 13.9 % (11.7-14.2); RDW Standard Deviation 43.6 fL (35.1-46.3); Red Blood Cell Count 5.41 M/mm3 (3.80-5.20); White Blood Cell Count 7.21 K/mm3 (4.00-11.30)
[2022-05-28 18:19] LABS: Base Excess Venous 7.8 mmol/L; Bicarbonate Venous 29.7 mmol/L (24.0-30.0); PCO2 Venous 55.7 mmHg (38-42); pH Blood Venous 7.38 (7.34-7.37)
[2022-05-28] MEDS ORDERED: LOSARTAN POTASS25 M2 PO (18:27)
[2022-05-28] MEDS ORDERED: BUPROPION XL150 M1 PO (18:28)
[2022-05-28 18:33] LABS: Albumin/Globulin Ratio 0.8 (0.8-1.8); Bilirubin, Total 0.2 mg/dL (0.1-1.0); Bun/Creatinine Ratio 13.2 (12.0-20.0); Calcium, Blood 8.8 mg/dL (8.5-10.1); Creatinine, Blood 0.68 mg/dL (0.40-1.00); Globulin, Blood 3.8 g/dL (2.2-4.0); Total Protein, Blood 6.8 g/dL (6.4-8.2)
[2022-05-29] MEDS ORDERED: AMLO5 PO (01:50)
[2022-05-29] MEDS ORDERED: ANORO ELLIPTA1 EACH INH (01:52)
[2022-05-29 05:45] LABS: BASOPHILS ABSOLUTE AUTO 0.02 K/mm3 (0.00-0.23); BASOPHILS PERCENT AUTO 1 % (0-2); EOSINOPHILS PERCENT AUTO 0 % (0-6); Hematocrit 48.3 % (33.0-51.0); Hemoglobin 15.3 g/dL (11.5-16.0); IMMATURE GRAN PERCENT AUTO 0 % (0-1); LYMPHOCYTES ABSOLUTE AUTO 0.32 K/mm3 (0.84-5.20); LYMPHOCYTES PERCENT AUTO 8 % (21-46); MONOCYTES ABSOLUTE AUTO 0.06 K/mm3 (0.16-1.47); MONOCYTES PERCENT AUTO 2 % (4-13); Mean Corpuscular HGB 27.4 pg (26.0-34.0); Mean Corpuscular HGB Conc 31.7 g/dL (31.5-36.5); Mean Corpuscular Volume 86 fL (80-100); Mean Platelet Volume 11.1 fL (9.1-12.4); NEUTROPHILS ABSOLUTE AUTO 3.66 K/mm3 (1.96-9.15); NEUTROPHILS PERCENT AUTO 90 % (41-73); Platelet Count 239 K/mm3 (150-400); RDW Coefficient Variation 13.9 % (11.7-14.2); RDW Standard Deviation 43.8 fL (35.1-46.3); Red Blood Cell Count 5.59 M/mm3 (3.80-5.20); White Blood Cell Count 4.06 K/mm3 (4.00-11.30)
[2022-05-29 06:17] LABS: Bun/Creatinine Ratio 26.4 (12.0-20.0); Calcium, Blood 9.2 mg/dL (8.5-10.1); Creatinine, Blood 0.57 mg/dL (0.40-1.00); Potassium, Blood 4.2 mmol/L (3.5-5.5)
--- NOTE | 2022-05-29 15:55 | NUR ---
STUDENT PRACTICAL NURSE CONTINUOUS PULSE OX. PATIENT LOW O2 SATS MOST OF THE DAY. ON 5.5L. SATS DROP INTO 80'S WHEN AMBULATING. AMBULATES TO BATHROOM INDEPENDENTLY. ALERT,IN BED MOST OF THE DAY. PATIENTS APPEARS ANXIOUS BUT PLEASANT. USES CALL LIGHT APPROPRIATELY. BED LOCKED IN LOWEST POSITION. CALL LIGHT IN REACH.
--- NOTE | 2022-05-30 04:05 | NUR ---
HR OPERATIONS ADVISOR SUMMARY BP ELEVATED, OTHERSWISE VSS. RECEIVED APRESOLINE IV EARLIER, WILL RECHECK BP TO SEE IF EFFECTIVE. UP TO BATHROOM A FEW TIMES, O2 SATS DECREASED TO 80'S A FEW TIMES. VOICED SOME ISSUES WITH O2 TUBING, TUBING CHANGED, VOICED EFFECTIVE. TREATMENTS PER RT. HAS BEEN RESTING QUIETLY WITH A FEW INTERRUPTIONS. CALL LIGHT IN REACH. WILL CONTINUE TO MONITOR
[2022-05-30 05:35] LABS: Hematocrit 49.4 % (33.0-51.0); Hemoglobin 15.6 g/dL (11.5-16.0); Mean Corpuscular HGB Conc 31.6 g/dL (31.5-36.5); Mean Corpuscular Volume 86 fL (80-100); Mean Platelet Volume 10.6 fL (9.1-12.4); Platelet Count 260 K/mm3 (150-400); RDW Coefficient Variation 13.7 % (11.7-14.2); RDW Standard Deviation 42.5 fL (35.1-46.3); Red Blood Cell Count 5.78 M/mm3 (3.80-5.20); White Blood Cell Count 10.42 K/mm3 (4.00-11.30)
[2022-05-30 06:02] LABS: Albumin, Blood 3.1 g/dL (3.4-5.0); Anion Gap 3 mmol/L (6-16); Blood Urea Nitrogen 17 mg/dL (8-24); Bun/Creatinine Ratio 29.7 (12.0-20.0); CO2, Blood 30 mmol/L (21-32); Calcium, Blood 9.5 mg/dL (8.5-10.1); Chloride, Blood 100 mmol/L (98-108); Creatinine, Blood 0.57 mg/dL (0.40-1.00); Glomerular Filtration Rate 105 (60-); Glucose, Blood 340 mg/dL (70-99); Phosphorus, Blood 2.4 mg/dL (2.5-4.9); Potassium, Blood 4.6 mmol/L (3.5-5.5); Sodium, Blood 133 mmol/L (136-145)
--- NOTE | 2022-05-30 11:52 | NUR ---
BLOOD SUGAR [address] JENNINGS RE ABOVE BG. T.O. TO GIVE 18 UNITS OF SHORT ACTING INSULIN.
--- NOTE | 2022-05-30 12:18 | NUR ---
MICONAZOLE PATIENT HAS YEAST INFECTION IN ABD FOLDS R>L. APPEARS TO BE CHRONIC PER PATIENT. MICONAZOLE ORDERED PER T.O. FROM DR. JENNINGS.
--- NOTE | 2022-05-30 17:32 | NUR ---
Shift Summary A/Ox4, pleasant/cooperative. Up independent to bathroom. O2 this am was 86-88 on 4L O2. Oxygen supplement increased to 7L HF this morning and titrated to 5L this evening with sats at 94%. Wireless biox on. Miconazole powder applied to abd folds for yeast infection. Education given RE cleansing and drying affected area before application, procedure was also demonstrated on patient by this RN. Mild wheezing throughout. Good appetite.
[2022-05-31 05:13] LABS: Anion Gap 6 mmol/L (6-16); Blood Urea Nitrogen 22 mg/dL (8-24); Bun/Creatinine Ratio 36.9 (12.0-20.0); CO2, Blood 28 mmol/L (21-32); Chloride, Blood 98 mmol/L (98-108); Glomerular Filtration Rate 103 (60-); Glucose, Blood 358 mg/dL (70-99); Phosphorus, Blood 2.8 mg/dL (2.5-4.9); Potassium, Blood 4.5 mmol/L (3.5-5.5); Sodium, Blood 132 mmol/L (136-145)
--- NOTE | 2022-05-31 05:46 | NUR ---
APPRENTICE JOCKEY SUMMARY: A&Ox4. PLEASANT AND COOPERATIVE WITH CARE. CALLS APPROPRIATELY AND IS ABLE TO COMMUNICATE NEEDS EFFECTIVELY. ORIENTED TO ABILITIES AND EXHIBITS GOOD JUDGMENT. PRN MELATONIN FOR SLEEP. GLUCOSE RUNNING HIGH, LIKELY R/T STEROIDS. NO C/O PAIN OR DISCOMFORT. NO ACUTE EVENTS T/O THE NIGHT. CONTINUES WITH RT. PRN HYDRALAZINE ADMINISTERED FOR SBP >180; RECHECK @ 154/82. LABS DRAWN THIS AM; NO CRITICAL RESULTS RECEIVED AT THIS TIME. REPORT TO ONCOMING RN.
--- NOTE | 2022-05-31 18:26 | NUR ---
SHIFT SUMMARY PT A&O X 4. VSS. IS COOPERATIVE AND PLEASANT WITH ALL CARE. AT START OF SHIFT DECREASED O2 TO 4 L'S VIA N/C, SATS RANGED FROM 89-91%. AT LUNCH DECREASED TO 3 L'S WITH SATS RANGING 89-94%. AT DINNER DECREASED TO 2.5 L'S, SATS ARE REMAINING >90%. IS ON CONT BI-OX AND WEARS BIPAP AT NOC. BLOOD SUGARS COVERED PER EMAR, THOUGH BG'S REMAIN ELEVATED. IS ON IV SOLUMEDROL. PT IS INDEPENDENT IN THE ROOM FOR RESTROOM USE. PT HAS AN EXISTING COLOSTOMY THAT SHE MANAGES HERSELF. PLAN IS FOR DC HOME WHEN CLINICALLY READY FOR DC. A HOME O2 EVAL IS ORDERED AND PENDING.
--- NOTE | 2022-06-01 07:16 | NUR ---
HIGH PRESSURE BOILER OPERATOR SUMMARY: A&Ox4. PLEASANT AND COOPERATIVE WITH CARE. CALLS APPROPRIATELY AND IS ABLE TO COMMUNICATE NEEDS EFFECTIVELY. ORIENTED TO ABILITIES. LACKS SOME JUDGMENT, ESPECIALLY R/T SUGARS AND SMOKING. ONE-TIME DOSE OF ATIVAN LAST NIGHT TO HELP WITH RESTING IN LIGHT OF STEROIDS CAUSING RESTLESSNESS. SHE REPORTS THIS DID NOT HELP, THOUGH SHE SEEMED TO BE UP LESS LAST NIGHT. ANTICIPATE DC HOME IN THE NEXT DAY OR TWO. REPORT TO ONCOMING RN.
--- NOTE | 2022-06-01 18:34 | NUR ---
SHIFT SUMMARY PT IS NOW ON RA WITH O2 SATS >90%. WITH EXERTION CONTINUES TO BECOME SOB AND WILL LIKELY CONTINUE TO REQUIRE O2 FOR EXERTIONAL ACTIVITIES. HOME O2 EVAL ORDERED & PENDING UPON DC HOME ORDERS. PT WILL LIKELY BE DC'D TOMORROW. APPETITE IS GOOD. BLOOD SUGARS COVERED PER EMAR. PER MD ORDER IV STEROIDS DC'D AND PT IS NOW ON ORAL PREDNISONE. 1ST DOSE WILL BE TOMORROW. PT MANAGES HER COLOSTOMY ON HER OWN. DENIES ANY DIFFICULTY WITH IT. REMAINS ON CONT BI-OX. WEARS BIPAP AT [facility] WITH 2.5 L O2 BLEED IN.
[2022-06-02 04:46] LABS: BASOPHILS ABSOLUTE AUTO 0.01 K/mm3 (0.00-0.23); BASOPHILS PERCENT AUTO 0 % (0-2); EOSINOPHILS ABSOLUTE AUTO 0.01 K/mm3 (0.00-0.68); EOSINOPHILS PERCENT AUTO 0 % (0-6); Hematocrit 48.7 % (33.0-51.0); Hemoglobin 15.8 g/dL (11.5-16.0); IMMATURE GRAN ABSOLUTE AUTO 0.06 K/mm3 (0.00-0.10); IMMATURE GRAN PERCENT AUTO 1 % (0-1); LYMPHOCYTES ABSOLUTE AUTO 1.71 K/mm3 (0.84-5.20); LYMPHOCYTES PERCENT AUTO 14 % (21-46); MONOCYTES ABSOLUTE AUTO 0.73 K/mm3 (0.16-1.47); MONOCYTES PERCENT AUTO 6 % (4-13); Mean Corpuscular HGB 27.2 pg (26.0-34.0); Mean Corpuscular HGB Conc 32.4 g/dL (31.5-36.5); Mean Corpuscular Volume 84 fL (80-100); Mean Platelet Volume 10.9 fL (9.1-12.4); NEUTROPHILS ABSOLUTE AUTO 9.71 K/mm3 (1.96-9.15); NEUTROPHILS PERCENT AUTO 79 % (41-73); Platelet Count 258 K/mm3 (150-400); RDW Coefficient Variation 13.9 % (11.7-14.2); RDW Standard Deviation 42.5 fL (35.1-46.3); White Blood Cell Count 12.23 K/mm3 (4.00-11.30)
[2022-06-02 05:25] LABS: Bun/Creatinine Ratio 41.8 (12.0-20.0); Calcium, Blood 8.7 mg/dL (8.5-10.1); Creatinine, Blood 0.62 mg/dL (0.40-1.00); Potassium, Blood 4.1 mmol/L (3.5-5.5)
--- NOTE | 2022-06-02 05:33 | NUR ---
SHIFT SUMMARY; NO ACUTE CHANGES OVERNIGHT. THE PT RESTED IN BED FOR THE ENTIRETY OF THE NIGHT. THE PT IS INDEPENDENT IN THE ROOM. THE PT IS AXO X4. THE PT IS INDEPENDENT WITH COLOSTOMY CARE. THE PT WORE HER BIPAP FOR THE ENTIRETY OF THE NIGHT, W/ 2.5L BLEED IN, THE PTS O2 SATS WERE 93%. THE PT REQUESTED TYLENOL AND COUGH DROPS THIS AM FOR A SOAR THROAT AND HEADACHE. THE PT OTHERWISE DENIES ANY PAIN, SOB, CHEST PAIN/PRESSURE OR N/V. CURRENTLY THE PT IS SITTING BEDSIDE WATCHING TV WHILE THE BED IS IN THE LOWEST POSITION AND THE CALL LIGHT IS AT BEDSIDE.
[2022-06-02] MEDS ORDERED: Prednisone10 MG PO (11:44)
[2022-06-02] MEDS ORDERED: DOXY100 PO (11:45)
--- NOTE | 2022-06-02 13:32 | NUR ---
PT DISCHARGED FROM THE UNIT. IV REMOVED. DISCHARGE INSTRUCTIONS REVIEWED. MEDICATIONS FAXED TO PHARMACY. INSTRUCTED ON FOLLOW UP APTS.
== END 2022-06-02 13:48 | disposition home or self-care (01) | DRG 189 ==
LOC: ER 16:58 → MEDS 23:58
PROVIDERS: Emergency Medicine; Family Medicine; Internal Medicine; Physician Assistant; Student in an Organized Health Care Education/Training Program; ADMIT Internal Medicine
PROC: 5A09357 Assistance with Respiratory Ventilation, Less than 24 Consecutive Hours, Continuous Positive Airway Pressure (ICD-10-PCS; principal; 2022-05-28)
DX: J96.21 Acute and chronic respiratory failure with hypoxia (principal); J44.1 Chronic obstructive pulmonary disease with (acute) exacerbation; I10 Essential (primary) hypertension; G47.33 Obstructive sleep apnea (adult) (pediatric); F17.210 Nicotine dependence, cigarettes, uncomplicated; K52.9 Noninfective gastroenteritis and colitis, unspecified; K57.90 Diverticulosis of intestine, part unspecified, without perforation or abscess without bleeding; F12.10 Cannabis abuse, uncomplicated; E11.65 Type 2 diabetes mellitus with hyperglycemia; F32.A Depression, unspecified; F41.9 Anxiety disorder, unspecified; E83.39 Other disorders of phosphorus metabolism; G47.00 Insomnia, unspecified; Z99.81 Dependence on supplemental oxygen; Z90.49 Acquired absence of other specified parts of digestive tract; Z93.3 Colostomy status; Z98.51 Tubal ligation status; Z98.890 Other specified postprocedural states; Z88.8 Allergy status to other drugs, medicaments and biological substances; Z79.899 Other long term (current) drug therapy; Z79.51 Long term (current) use of inhaled steroids; Z79.4 Long term (current) use of insulin
CPT/HCPCS: 36415; 71046; 74177; 80048; 80053; 80069; 82803; 82947; 83880; 84484; 85025; 85027; 85379; 93005; 93010; 94640; 94660; 94664; 94761; 94762; 96374-59; 99285-25; A9270; J0360; J1650; J1815; J2930; J7060; J7512; Q9967

== ENCOUNTER 2022-07-10 12:34 | Emergency (ER) | payer MEDICARE ==
[~2022-07-10] VITALS: Ht 157.5 cm; Wt 151.1 kg
[~2022-07-10 12:34] MED LIST changes: +AMLO5 PO; +BUPROPION XL150 M1 PO; +LOSARTAN POTASS25 M2 PO; +Prednisone10 MG PO
[2022-07-10 13:22] LABS: BASOPHILS ABSOLUTE AUTO 0.06 K/mm3 (0.00-0.23); BASOPHILS PERCENT AUTO 0 % (0-2); EOSINOPHILS ABSOLUTE AUTO 0.04 K/mm3 (0.00-0.68); EOSINOPHILS PERCENT AUTO 0 % (0-6); Hematocrit 44.1 % (33.0-51.0); Hemoglobin 14.1 g/dL (11.5-16.0); IMMATURE GRAN ABSOLUTE AUTO 0.08 K/mm3 (0.00-0.10); IMMATURE GRAN PERCENT AUTO 0 % (0-1); LYMPHOCYTES ABSOLUTE AUTO 1.38 K/mm3 (0.84-5.20); LYMPHOCYTES PERCENT AUTO 7 % (21-46); MONOCYTES ABSOLUTE AUTO 1.02 K/mm3 (0.16-1.47); MONOCYTES PERCENT AUTO 5 % (4-13); Mean Corpuscular Volume 85 fL (80-100); Mean Platelet Volume 10.9 fL (9.1-12.4); NEUTROPHILS ABSOLUTE AUTO 16.29 K/mm3 (1.96-9.15); NEUTROPHILS PERCENT AUTO 86 % (41-73); Platelet Count 283 K/mm3 (150-400); RDW Coefficient Variation 14.4 % (11.7-14.2); RDW Standard Deviation 43.8 fL (35.1-46.3); Red Blood Cell Count 5.22 M/mm3 (3.80-5.20); White Blood Cell Count 18.87 K/mm3 (4.00-11.30)
[2022-07-10 14:03] LABS: Albumin, Blood 3.2 g/dL (3.4-5.0); Albumin/Globulin Ratio 0.7 (0.8-1.8); Bilirubin, Total 0.5 mg/dL (0.1-1.0); Bun/Creatinine Ratio 22.8 (12.0-20.0); Calcium, Blood 9.5 mg/dL (8.5-10.1); Creatinine, Blood 0.61 mg/dL (0.40-1.00); Globulin, Blood 4.6 g/dL (2.2-4.0); Potassium, Blood 4.2 mmol/L (3.5-5.5); Total Protein, Blood 7.8 g/dL (6.4-8.2)
[2022-07-10 14:21] LABS: Influenza A, PCR NEGATIVE (NEGATIVE); Influenza B, PCR NEGATIVE (NEGATIVE); Resp Syncytial Virus, PCR NEGATIVE (NEGATIVE); SARS-Cov-2 (COVID-19) PCR, MMC NEGATIVE (NEGATIVE)
[2022-07-10] MEDS ORDERED: Prednisone20 MG PO (16:21)
[2022-07-10] MEDS ORDERED: Amoxicillin875 MG PO (16:21)
[2022-07-10 17:03] VITALS: BP 132/60
== END 2022-07-11 02:05 | disposition home or self-care (01) ==
LOC: ER 12:34
PROVIDERS: Physician Assistant
DX: J44.1 Chronic obstructive pulmonary disease with (acute) exacerbation (principal); Z88.8 Allergy status to other drugs, medicaments and biological substances; Z79.899 Other long term (current) drug therapy; Z79.4 Long term (current) use of insulin; Z79.52 Long term (current) use of systemic steroids; E11.9 Type 2 diabetes mellitus without complications; I10 Essential (primary) hypertension; F17.210 Nicotine dependence, cigarettes, uncomplicated
CPT/HCPCS: 0241U; 71046; 80053; 83880; 84484; 85025; 93005; 93010; 94640; 94664; 96374; 96375; 99284-25; J1885; J2550; J2930

== ENCOUNTER 2023-02-19 08:40 | Day surgery (SDC) | payer MEDICARE ==
[~2023-02-19] VITALS: Ht 157.5 cm; Wt 105.6 kg
[~2023-02-19 08:40] MED LIST changes: +ARNUITY ELLIP200 MCG; +Amoxicillin875 MG PO; +INSULANI; +Prednisone20 MG; +Prednisone20 MG PO
[2023-02-19 10:49] VITALS: BP 160/73
--- NOTE | 2023-02-19 11:23 | NUR ---
02/19/23 1123 GINO BEASLEY PT TO RECOVERY, PER PT TO PERFORM ENEMA AT HOME FOR MUCUS AND STOOL IN RECTAL VAULT. PT AND PT'S SISTER TALKED WITH DR. HOWELL AND PT IS BEING REFERRED TO [facility] FOR CONSULT ON COLOSTOMY TAKE DOWN PT IS TOO HIGH RISK DUE TO MULTIPLE COMORBIDITIES AND BEING A CURRENT SMOKER, WHILE ALSO HAVING A LARGE PARASTOMAL HERNIA. PT WAS EDUCATED ON ENEMA AND ESCORTED TO BATHROOM FOR ASSISTANCE. SHE ATTEMPTED TO VOID ON HER OWN AND THEN THIS RN ASSISTED WITH ATTEMPTED ENEMA. PT WAS VERY TENDER AND SORE AT RECTUM/ANUS AND REQUESTED WE STOP. ONLY MINIMAL WATER WAS INFUSED FROM THE ENEMA. DR. HOWELL CONSULTED AND LIDOCAINE GELLY OBTAINED. GELLY PLACED TO ANUS AND PT ALLOWED TO SIT AND LET NUMB FOR SEVERAL MINUTES. AGAIN THIS RN ATTEMPTED ENEMA ON PATIENT AND PT WAS UNABLE TO TOLERATE ENEMA AND VERBALIZED WISHING TO STOP AND GO HOME. PT WAS GIVEN PRIVACY TO CLEAN HERSELF UP AND THEN RETURNED TO ROOM. PT PROVIDED WITH EXTRA MENTAL/EMOTIONAL SUPPORT AND EDUCATED ON TECHNIQUES AT HOME TO AID MOVEMENT OF MUCUS AND STOOL IN RECTAL VAULT. PT GIVEN PADS AND EXTRA ENEMA TO ATTEMPT AT HOME IF SHE WISHES. MEAL ROOM HAND VIA WC TO WAITING FAMILY.
== END 2023-02-19 11:10 | disposition home or self-care (01) ==
LOC: ORSCSDS 08:40
PROVIDERS: Surgery
PROC: 0DBE8ZX Excision of Large Intestine, Via Natural or Artificial Opening Endoscopic, Diagnostic (ICD-10-PCS; principal; 2023-02-19 09:45)
PROC: 0DJD8ZZ Inspection of Lower Intestinal Tract, Via Natural or Artificial Opening Endoscopic (ICD-10-PCS; principal; 2023-02-19 09:45)
PROC: 0DBM8ZX Excision of Descending Colon, Via Natural or Artificial Opening Endoscopic, Diagnostic (ICD-10-PCS; principal; 2023-02-19 09:45)
DX: Z12.11 Encounter for screening for malignant neoplasm of colon (principal); D12.4 Benign neoplasm of descending colon; K52.9 Noninfective gastroenteritis and colitis, unspecified; K57.30 Diverticulosis of large intestine without perforation or abscess without bleeding; Z93.3 Colostomy status; K43.5 Parastomal hernia without obstruction or gangrene; J44.9 Chronic obstructive pulmonary disease, unspecified; I10 Essential (primary) hypertension; G47.33 Obstructive sleep apnea (adult) (pediatric); E11.9 Type 2 diabetes mellitus without complications; E66.01 Morbid (severe) obesity due to excess calories; Z68.41 Body mass index [BMI] 40.0-44.9, adult; Z79.4 Long term (current) use of insulin; Z79.85 Long-term (current) use of injectable non-insulin antidiabetic drugs; Z79.899 Other long term (current) drug therapy; F17.210 Nicotine dependence, cigarettes, uncomplicated
CPT/HCPCS: 44389; G0104; 82947; 88305; A9270; J2704

== ENCOUNTER 2023-03-13 08:36 | Inpatient (IN) | payer MEDICARE ==
[~2023-03-13] VITALS: Ht 157.5 cm; Wt 104.0 kg
[~2023-03-13 08:36] MED LIST changes: -AMLO5 PO; +Amlodipine Bes2.5 MG PO; -BUPROPION XL150 M1 PO; -INSULANI; +LOSARTAN POTAS100 M1 PO; -LOSARTAN POTASS25 M2 PO
[2023-03-13 09:36] LABS: BASOPHILS ABSOLUTE AUTO 0.06 K/mm3 (0.00-0.23); BASOPHILS PERCENT AUTO 1 % (0-2); EOSINOPHILS PERCENT AUTO 2 % (0-6); Hematocrit 43.1 % (33.0-51.0); Hemoglobin 13.6 g/dL (11.5-16.0); IMMATURE GRAN ABSOLUTE AUTO 0.05 K/mm3 (0.00-0.10); IMMATURE GRAN PERCENT AUTO 0 % (0-1); LYMPHOCYTES ABSOLUTE AUTO 1.62 K/mm3 (0.84-5.20); LYMPHOCYTES PERCENT AUTO 14 % (21-46); MONOCYTES PERCENT AUTO 5 % (4-13); Mean Corpuscular HGB 27.7 pg (26.0-34.0); Mean Corpuscular HGB Conc 31.6 g/dL (31.5-36.5); Mean Corpuscular Volume 88 fL (80-100); Mean Platelet Volume 10.5 fL (9.1-12.4); NEUTROPHILS ABSOLUTE AUTO 8.77 K/mm3 (1.96-9.15); NEUTROPHILS PERCENT AUTO 78 % (41-73); Platelet Count 337 K/mm3 (150-400); RDW Coefficient Variation 13.2 % (11.7-14.2); RDW Standard Deviation 42.3 fL (35.1-46.3); Red Blood Cell Count 4.91 M/mm3 (3.80-5.20)
[2023-03-13 09:58] LABS: Albumin, Blood 2.5 g/dL (3.4-5.0); Albumin/Globulin Ratio 0.6 (0.8-1.8); Bilirubin, Total 0.2 mg/dL (0.1-1.0); Bun/Creatinine Ratio 10.8 (12.0-20.0); Calcium, Blood 8.8 mg/dL (8.5-10.1); Creatinine, Blood 0.56 mg/dL (0.40-1.00); Globulin, Blood 4.4 g/dL (2.2-4.0); Total Protein, Blood 6.9 g/dL (6.4-8.2)
[2023-03-13 10:26] LABS: Influenza A, PCR NEGATIVE (NEGATIVE); Influenza B, PCR NEGATIVE (NEGATIVE); Resp Syncytial Virus, PCR NEGATIVE (NEGATIVE); SARS-Cov-2 (COVID-19) PCR, MMC NEGATIVE (NEGATIVE)
[2023-03-13 13:27] VITALS: BP 171/121
[2023-03-13] MEDS ORDERED: FARXIGA5 MG PO (13:55)
[2023-03-13] MEDS ORDERED: BUPROPION XL150 M1 PO (13:56)
[2023-03-13 14:35] VITALS: BP 181/86
[2023-03-13 17:10] VITALS: BP 172/92
--- NOTE | 2023-03-13 17:14 | NUR ---
SHIFT SUMMARY: PATIENT ARRIVES TO ROOM AT 1330 FROM ER FOR DX'S OF COPD EXACERBATION. PATIENT A/OX4, ANXIOUS AT TIMES, ANSWER TO QUESTIONS APPROPRIATELY AND ABLE TO MAKE NEEDS KNOWN. PATIENT IS PLEASANT AND COOPERATIVE c CARE. PATIENT USES 2L OF O2 AT BASELINE AND WEAR BIPAP AT HS. PATIENT CURRENTLY ON 3L OF O2 c CONTINUES PULSE OX, SPO2 RANGES 88-93%. PATIENT REPORTS SOB c ACTIVITIES, LUNGS HAS INSP WHEEZY T/O TO AUSCULTATION. PATIENT HAS EXCORIATION TO L UNDER BREAST, FOLDS AND GROIN. MEDICATED POWDER ORDERED SCHEDULED TID AND STARTED AT 2100. PATIENT DENIES CP/PRESSURE, N/V AND DIZZINESS. PATIENT HAS COLOSTOMY TO LLQ OF ABDOMEN AND PRODUCING UNFORMED BROWN MED BM THIS SHIFT. PATIENT ON ADA DIET c BS ACHS, BS BEFORE DINNER [address] MCCURDY REGARDING THIS ISSUES. RECEIVED ORDER TO GIVE 15 UNITS OF REGULAR INSULIN NOW, AND SHE WILL REEVALUATE PATIENT BP MEDS IN AM. PATIENT IS CONTINENCE OF BLADDER AND USES BSC c SBA. PATIENT RECEIVED SCHEDULED MEDS PER EMAR. PIV TO RAC SALINE LOCKED. CALL LIGHT IN REACH.
[2023-03-13 19:31] VITALS: BP 142/80
[2023-03-14 02:11] LABS: Adenovirus Not Detected (NOT DETECT); Bordetella pertussis Not Detected (NOT DETECT); Chlamydophila pneumoniae Not Detected (NOT DETECT); Coronavirus 229E Not Detected (NOT DETECT); Coronavirus HKU1 Not Detected (NOT DETECT); Coronavirus NL63 Not Detected (NOT DETECT); Coronavirus OC43 Not Detected (NOT DETECT); Human Metapneumovirus Not Detected (NOT DETECT); Human Rhinovirus/Enterovirus Not Detected (NOT DETECT); Influenza A/2009-H1 Not Detected (NOT DETECT); Influenza A/H1 Not Detected (NOT DETECT); Influenza A/H3 Not Detected (NOT DETECT); Influenza B Not Detected (NOT DETECT); Mycoplasma pneumoniae Not Detected (NOT DETECT); Parainfluenza Virus 1 Not Detected (NOT DETECT); Parainfluenza Virus 2 Not Detected (NOT DETECT); Parainfluenza Virus 3 Not Detected (NOT DETECT); Parainfluenza Virus 4 Not Detected (NOT DETECT); Respiratory Syncytial Virus Not Detected (NOT DETECT); SARS-Cov-2 (COVID-19), BioFire Not Detected (NOT DETECT)
[2023-03-14 03:28] VITALS: BP 173/97
--- NOTE | 2023-03-14 04:24 | NUR ---
SHIFT SUMMARY CHRISSY WAS ALERT AND FULLY ORIENTED ON ASSESSMENT. PT IV IN RAC WAS LEAKING AND BLEEDING, I PLACED A NEW IV IN TRINITY. PT ON 3L 02 VIA NC, BIPAP WITH 02 BLEED IN FOR SLEEP. EVENING CBG WAS 413, DR ARRIETA NOTIFIED, 5 EXTRA UNITS HUMULIN R ORDERED/ ADMINISTERED AND SCHEDULE CHANGED TO AC/HS. PT MAINTAINING O2 SATURATIONS IN LOW 90'S AND DESATS VERY QUICKLY INTO LOW 80'S WITH EXERTION. PT RESTING IN BED AT A LOW POSITION WITH THE CALL LIGHT IN REACH.
[2023-03-14 06:02] LABS: BASOPHILS ABSOLUTE AUTO 0.01 K/mm3 (0.00-0.23); BASOPHILS PERCENT AUTO 0 % (0-2); EOSINOPHILS PERCENT AUTO 0 % (0-6); Hematocrit 43.6 % (33.0-51.0); Hemoglobin 13.9 g/dL (11.5-16.0); IMMATURE GRAN ABSOLUTE AUTO 0.08 K/mm3 (0.00-0.10); IMMATURE GRAN PERCENT AUTO 1 % (0-1); LYMPHOCYTES ABSOLUTE AUTO 0.72 K/mm3 (0.84-5.20); LYMPHOCYTES PERCENT AUTO 7 % (21-46); MONOCYTES ABSOLUTE AUTO 0.11 K/mm3 (0.16-1.47); MONOCYTES PERCENT AUTO 1 % (4-13); Mean Corpuscular HGB 27.6 pg (26.0-34.0); Mean Corpuscular HGB Conc 31.9 g/dL (31.5-36.5); Mean Corpuscular Volume 87 fL (80-100); Mean Platelet Volume 10.2 fL (9.1-12.4); NEUTROPHILS ABSOLUTE AUTO 8.89 K/mm3 (1.96-9.15); NEUTROPHILS PERCENT AUTO 91 % (41-73); Platelet Count 348 K/mm3 (150-400); RDW Coefficient Variation 12.8 % (11.7-14.2); RDW Standard Deviation 40.1 fL (35.1-46.3); Red Blood Cell Count 5.04 M/mm3 (3.80-5.20); White Blood Cell Count 9.81 K/mm3 (4.00-11.30)
[2023-03-14 06:24] LABS: Bun/Creatinine Ratio 25.1 (12.0-20.0); Calcium, Blood 8.9 mg/dL (8.5-10.1); Creatinine, Blood 0.64 mg/dL (0.40-1.00); Potassium, Blood 4.5 mmol/L (3.5-5.5)
[2023-03-14 07:31] VITALS: BP 195/93
--- NOTE | 2023-03-14 07:41 | NUR ---
NOTE: PATIENT BS BEFORE BREAKFAST IS 375. NOTIFIED DR. MCCURDY WITH THIS ISSUE, RECEIVED ORDER CHANGED SLIDING SCALE TO HIGH.
--- NOTE | 2023-03-14 12:30 | NUR ---
NOTE: PATIENT BS TAKEN BEFORE LUNCH IS 427. NOTIFIED DR. MCCURDY, RECEIVED ORDER TO CONTINUE c CURRENT HIGH SLIDING COVERAGE AND "I WILL DECREASE THE PREDNISOLONE."
[2023-03-14 14:48] VITALS: BP 131/77
--- NOTE | 2023-03-14 17:38 | NUR ---
SHIFT SUMMARY: PATIENT A/OX4. PLEASANT AND COOPERATIVE c CARE. PATIENT DENIES CP/PRESSURE, N/V AND DIZZINESS. PATIENT STILL ON 3L O2 VIA NC c SPO2 RANGES 88-93% THIS SHIFT. LUNGS STILL WHEEZY T/O TO AUSCULTATIONS. PATIENT BS THIS SHIFT; 375 BEFORE BREAKFAST, 427 BEFORE LUNCH AND 275 BEFORE DINNER, DR. MCCURDY IS AWARE OF THIS ISSUES AND MADE SOME CHANGES c REGARDS TO PATIENT INSULIN COVERAGE, DECREASED SOLUMEDROL TO TID AND INCREASED THE DOSE OF BP MEDS. PATIENT BS AND BP HAS IMPROVED. PATIENT STILL ON ADA DIET AND HAS EXCELLENT APPETITE. PATIENT HAS COLOSTOMY TO LLQ, CONTINENCE OF BLADDER AND USES BSC INDEPENDENTLY. PATIENT RECEIVED IV ABX AND SCHEDULED MEDS PER EMAR. PIV TO TRINITY SALINE LOCKED.
[2023-03-14 20:12] VITALS: BP 175/92
[2023-03-15 04:23] VITALS: BP 175/101
--- NOTE | 2023-03-15 04:51 | NUR ---
SHIFT SUMMARY MATILDE WAS ALERT AND FULLY ORIENTED AT THE START OF THE SHIFT. PRIMARY COMPLAINT TONIGHT IS MIGRAINE HEADACHE, PAIN MANAGEMENT PROVIDED PER EMAR. PT CONTINUES TO HAVE ELEVATED B/P AND CBG. DR ARRIETA APPROVED HS ADMINISTRATION OF CS INSULIN D/T CBG 293. PT RESTING IN BED AT A LOW POSITION WITH CALL LIGHT IN REACH, AND 1:[address] TO PREVENT PT FROM SMOKING. 1L O2 VIA NC APPLIED TO PT FOR COMFORT.
--- NOTE | 2023-03-15 04:56 | NUR ---
SHIFT SUMMARY CHRISSY WAS ALERT AND FULLY ORIENTED ON ASSESSMENT. HER CONDITION IS UNCHANGED FROM PREVIOUS NIGHT. PT DENIES C/P/PRESSURE, SOB, AND PAIN. SHE IS INDEPENDENT TO COMMODE. PT HAS NO CONCERNS OR COMPLAINTS AT THIS TIME. PT RESTING IN BED AT A LOW POSITION WITH CALL LIGHT IN REACH AND BIPAP IN PLACE.
[2023-03-15 05:18] LABS: Bun/Creatinine Ratio 38.2 (12.0-20.0); Creatinine, Blood 0.71 mg/dL (0.40-1.00); Potassium, Blood 4.8 mmol/L (3.5-5.5)
[2023-03-15 07:39] VITALS: BP 200/89
[2023-03-15 07:55] VITALS: BP 187/91
[2023-03-15 09:37] VITALS: BP 168/92
[2023-03-15 15:07] VITALS: BP 167/81
--- NOTE | 2023-03-15 15:21 | NUR ---
SHIFT SUMMARY: PATIENT A/OX4, VERY TALKATIVE, PLEASANT AND COOPERATIVE c CARE. PATIENT REPORTS "FEELING BETTER TODAY COMPARED YESTERDAY" PATIENT O2 TITRATED DOWN TO 2L, CONT PULSE OX c SPO2 RANGES 88-94% AND WEAR BIPAP AT HS c BLEED IN O2. PATIENT STILL HYPERTENSIVE AND BS STILL ELEVATED MID TO HIGH 300'S, DR. MCCURDY IS AWARE OF THIS ISSUES AND MADE SOME CHANGES TO PATIENT SOLUMEDROL AND INSULIN COVERAGE (SEE EMAR FOR DETAILS). PATIENT HAS EXCELLENT APPETITE, CONTINENCE OF BLADDER AND USES BSC INDEPENDENTLY T/O SHIFT. COLOSTOMY TO LLQ PRODUCING GOOD AMT OF BROWN SOFT STOOL AND EMPTIED X2 THIS SHIFT. PATIENT HAD AN XRAY AND ECHO DONE TODAY, AWAITING FOR RESULT. PATIENT HAS NO COMPLAINTS OR DENIES NEW CONCERNED THIS SHIFT. PIV TO TRINITY SALINE LOCKED. CALL LIGHT IN REACH.
[2023-03-15 19:32] VITALS: BP 143/78
--- NOTE | 2023-03-16 04:21 | NUR ---
SHIFT SUMMARY CHRISSY WAS ALERT AND FULLY ORIENTED AT THE START OF THE SHIFT AND ABLE TO AMBULATE INDEPENDANTLY TO THE COMMODE. HER OXYGEN SATURATIONS ARE IMPROVED, EVEN AFTER HAVING O2 TITRATED DOWN ON DAY SHIFT, SHE IS NO LONGER RAPIDLY DESATTING WITH EXERTION. PT'S OSTOMY IS OUTPUTTING COPIOUS AMOUNTS OF SEMI FORMED BROWN STOOLS TONIGHT. PT RESTING IN BED AT A LOW POSITION WITH CALL LIGHT IN REACH WHICH SHE USES APPROPRIATELY.
[2023-03-16 05:41] VITALS: BP 176/98
[2023-03-16 06:38] LABS: Calcium, Blood 8.5 mg/dL (8.5-10.1); Creatinine, Blood 0.64 mg/dL (0.40-1.00); Potassium, Blood 4.3 mmol/L (3.5-5.5)
[2023-03-16 08:17] VITALS: BP 206/98
[2023-03-16 08:22] VITALS: BP 225/99
[2023-03-16 10:29] VITALS: BP 148/94
--- NOTE | 2023-03-16 15:38 | NUR ---
SHIFT SUMMARY PT AWAKE DURING SHIFT REPORT THIS AM, SITTING UP TO EOB. PT IS ON 2L O2 VIA NC WHEN NOT ON BIPAP. PER REPORT, PT WAS ON RA @ BASELINE PRIOR TO ADMISSION. PT MAY NEED HOME O2 EVAL AT D/C. PT IS INDEPENDENT TO BSC TO VOID. OSTOMY TO LLQ; PT ABLE TO PROVIDE SELF CARE. PT IS MORBIDLY OBESE, CURRENT SMOKER. VS TAKEN SHOWING ELEVATED BP; SEE CHART. DR MCCURDY PLACED NEW ORDERS EARLY IN AM. MEDS GIVEN PER EMAR, INCLUDING NEW CLONIDINE. PT NOT WANTING TO TAKE CLONIDINE ORDERED, BUT LATER AGREED. DR MCCURDY TO TO SEE PT AND DISCUSS PLAN OF CARE. BP RECHECK'D SHOWING INCREASE; SEE CHART. DR MCCURDY ATTEMPTED TO EDU PT ON BP MEDICATION AND WEEKLY CK'S WITH RN AT PCP OFFICE AFTER D/C. PT ARGUMENTIVE AND DISAGREEABLE TO RECOMMENDATIONS. DR MCCURDY SPENT A GREAT LENGTH OF TIME TALKING WITH PT ATTEMPTING TO EDU. BP NAZARIO'D LATER AFTER MEDS EFFECTIVE SHOWING IMPROVEMENT. PT CURRENTLY RESTING QUIETLY. CALL LT IN REACH.
[2023-03-16 16:21] VITALS: BP 165/87
--- NOTE | 2023-03-16 18:00 | NUR ---
PT SITTING UP TO EOB EATING DINNER. A LITTLE MORE PLEASANT AND CO-OP THAN EARLIER THIS AM. BP UP SOME THIS AFTERNOON, COMPARED TO EARLIER AM AFTER MEDS GIVEN. PT SCHEDULED TO HAVE ADDITIONAL MEDS THIS EVENING. CALL LT IN REACH.
[2023-03-16 19:42] VITALS: BP 164/106
[2023-03-17 04:55] VITALS: BP 161/98
[2023-03-17 05:37] LABS: Bun/Creatinine Ratio 47.3 (12.0-20.0); Calcium, Blood 8.6 mg/dL (8.5-10.1); Creatinine, Blood 0.68 mg/dL (0.40-1.00); Potassium, Blood 4.2 mmol/L (3.5-5.5)
--- NOTE | 2023-03-17 06:16 | NUR ---
SHIFT SUMMARY PT A&O X4, COOPERATIVE WITH CARE. PT ON BIPAP WHILE ASLEEP WITH 2L BLEED IN. PT IS SBA TO BATHROOM. CONTINENT, COLOSTOMY. MEDICATED FOR HIGH BLOOD PRESSURE SEE EMAR. HS BS 416, NOTIFIED PROVIDER. ORDERED 10 UNITS REGULAR INSTEAD OF THE SCHEDULED 6. CONT BIOX IN PLACE. BED KEPT IN LOWEST POSITION WITH CALL LIGHT WITHIN REACH. WILL CONTINUE TO MONITOR.
[2023-03-17 07:23] VITALS: BP 180/77
[2023-03-17 11:19] VITALS: BP 135/72
[2023-03-17] MEDS ORDERED: AMLO10 PO (12:56)
[2023-03-17] MEDS ORDERED: TRULICITY0.75 MG/01 SC (12:56)
[2023-03-17] MEDS ORDERED: GUAI600T33 PO (12:57)
[2023-03-17] MEDS ORDERED: CATAPRES0.1 MG PO (12:57)
[2023-03-17] MEDS ORDERED: DOCU100 PO (12:57)
[2023-03-17] MEDS ORDERED: IPRAT-ALBUT 0.5-3 ML INH (12:58)
[2023-03-17] MEDS ORDERED: Nicoderm Cq1 EAC1 TOP (12:58)
[2023-03-17] MEDS ORDERED: Prednisone10 MG PO (13:00)
[2023-03-17] MEDS ORDERED: SENNA LAXATIVE8.6 MG PO (13:00)
[2023-03-17] MEDS ORDERED: Diflucan100 MG PO (13:01)
--- NOTE | 2023-03-17 15:53 | NUR ---
PT AWAKE DURING SHIFT REPORT THIS AM, SITTING UP TO EOB WATCHING TV. PT ON RA AT THAT TIME AND THRU OUT THE MORNING. BP STILL ELEVATED THIS AM, BUT NOT MUCH YESTERDAY. BP MEDS GIVEN WITH BREAKFAST, LATER BECOMING EFFECTIVE. PT WANTING TO D/C HOME. DR MCCURDY IN TO SEE PT AND DISCUSS PLAN OF CARE. PT ENCOURAGED AGAIN TO STOP SMOKING AND CHK BP REGULARLY. PT ALSO EDU ON DIABETIC DIET AND CHKING CBG'S AT LEAST A COUPLE OF TIMES PER DAY, ESPECIALLY WHILE STILL ON PREDNISONE. D/C ORDERS PLACED. SCRIPT FOR BP MACHINE PROVIDED AND PLACED IN D/C PACKET. PHARMACY SPENT AT LEAST AN HOUR GOING OVER PT'S MEDICATIONS AND THE IMPORTANCE OF CKING BP AND BLOOD SUGARS. PHARMACY AND RT ALSO COUNSELED PT TO QUITE SMOKING. PT HAS BEEN VERY NONCOMPLIANT WITH TAKING BP MEDS AND DIABETIC NEEDS. PT ABLE TO GATHER BELONGINGS AND GET DRESSED, SELF. PT ASSISTED OUT TO CAR VIA W/C WITH ALL BELONGINGS. MEDS FAXED TO [facility], PER PT REQUEST.
== END 2023-03-17 14:41 | disposition home or self-care (01) | DRG 189 ==
LOC: ER 08:36 → MEDS 11:29
PROVIDERS: Student in an Organized Health Care Education/Training Program; ADMIT Family Medicine
DX: J96.21 Acute and chronic respiratory failure with hypoxia (principal); J44.1 Chronic obstructive pulmonary disease with (acute) exacerbation; E87.1 Hypo-osmolality and hyponatremia; Z68.41 Body mass index [BMI] 40.0-44.9, adult; G47.33 Obstructive sleep apnea (adult) (pediatric); F17.210 Nicotine dependence, cigarettes, uncomplicated; E11.9 Type 2 diabetes mellitus without complications; I10 Essential (primary) hypertension; E66.9 Obesity, unspecified; R73.9 Hyperglycemia, unspecified; T38.0X5A Adverse effect of glucocorticoids and synthetic analogues, initial encounter; Z71.6 Tobacco abuse counseling; Z79.4 Long term (current) use of insulin; Z11.52 Encounter for screening for COVID-19
CPT/HCPCS: 0202U; 0241U; 36415; 71045; 80048; 80053; 82947; 83605; 85025; 93005; 93010; 94640; 94660; 94664; 94760; 94761; 94762; 96365; 96367; 96372; 96375; 96376; 99285-25; A9270; C8929; G0378; J0360; J0456; J0696; J1650; J1815; J2930; J7050; J7512; Q9957

== ENCOUNTER 2024-09-22 12:57 | Observation (INO) | payer MEDICARE ==
[~2024-09-22] VITALS: Ht 157.5 cm; Wt 105.3 kg
[~2024-09-22 12:57] MED LIST changes: +BUPROPION XL150 M1 PO; +CATAPRES0.1 MG PO; +DOCU100 PO; +Diflucan100 MG PO; +FARXIGA5 MG PO; +GUAI600T33 PO; +IPRAT-ALBUT 0.5-3 ML INH; +Nicoderm Cq1 EAC1 TOP; +SENNA LAXATIVE8.6 MG PO
[2024-09-22] MEDS ORDERED: Lidocaine HCl 2% 20 MG/ML 5ML SYR IV ONE (13:14)
[2024-09-22] MEDS ORDERED: Propofol 10mg/ml 20 ml Vial (Procedural) IV ONE (13:14)
[2024-09-22 13:56] LABS: BASOPHILS ABSOLUTE AUTO 0.05 K/mm3 (0.00-0.23); BASOPHILS PERCENT AUTO 1 % (0-2); EOSINOPHILS ABSOLUTE AUTO 0.10 K/mm3 (0.00-0.68); EOSINOPHILS PERCENT AUTO 1 % (0-6); Hematocrit 46.6 % (33.0-51.0); Hemoglobin 14.7 g/dL (11.5-16.0); IMMATURE GRAN ABSOLUTE AUTO 0.02 K/mm3 (0.00-0.10); IMMATURE GRAN PERCENT AUTO 0 % (0-1); LYMPHOCYTES ABSOLUTE AUTO 1.97 K/mm3 (0.84-5.20); LYMPHOCYTES PERCENT AUTO 20 % (21-46); MONOCYTES ABSOLUTE AUTO 0.58 K/mm3 (0.16-1.47); MONOCYTES PERCENT AUTO 6 % (4-13); Mean Corpuscular HGB Conc 31.5 g/dL (31.5-36.5); Mean Corpuscular Volume 87 fL (80-100); NEUTROPHILS ABSOLUTE AUTO 7.27 K/mm3 (1.96-9.15); NEUTROPHILS PERCENT AUTO 73 % (41-73); NRBC ABSOLUTE 0.00 K/mm3 (0.00-0.02); NRBC Auto 0.0 /100 WBC (0.0-0.2); Platelet Count 268 K/mm3 (150-400); RDW Coefficient Variation 13.4 % (11.7-14.2); RDW Standard Deviation 42.8 fL (35.1-46.3)
[2024-09-22 14:30] LABS: Alanine Aminotransfer (ALT/SGP 18.0 U/L (12-78); Albumin, Blood 3.3 g/dL (3.4-5.0); Albumin/Globulin Ratio 0.9 (0.8-1.8); Anion Gap 8.0 mmol/L (3-11); Aspartate Aminotrans (AST/SGOT 11.0 U/L (12-37); Bilirubin, Total 0.3 mg/dL (0.1-1.0); Blood Urea Nitrogen 7.0 mg/dL (8-24); CO2, Blood 32.0 mmol/L (21-32); Calcium, Blood 9.2 mg/dL (8.5-10.1); Chloride, Blood 102.0 mmol/L (98-108); Creatinine, Blood 0.6 mg/dL (0.40-1.00); Globulin, Blood 3.8 g/dL (2.2-4.0); Glucose, Blood 145.0 mg/dL (70-99); Potassium, Blood 3.8 mmol/L (3.5-5.5); Sodium, Blood 138.0 mmol/L (136-145); Total Protein, Blood 7.1 g/dL (6.4-8.2)
[2024-09-22 14:45] LABS: Prothrombin Time Results 11.1 Sec (9.7-11.5)
[2024-09-22] MEDS ORDERED: Ondansetron HCl 2 MG / ML 2ML Vial IV PRN (17:00)
[2024-09-22] MEDS ORDERED: NS 1,000 ML IV SCH (17:00)
[2024-09-22] MEDS ORDERED: Albuterol 2.5 MG/3 ML VIAL INH PRN (17:10)
[2024-09-22] MEDS ORDERED: HydrALAZINE HCl 20 MG / ML 1ML Vial IV PRN (17:15)
[2024-09-22] MEDS ORDERED: Insulin Human Lispro 100 Units/ML 3ML Syringe SC SCH ×2 (18:00→21:00)
[2024-09-22 18:26] LABS: Campylobacter Sp Not Detected (NOT DETECT); E. Coli O157 Not Detected (NOT DETECT); Enteroaggregative E. coli-EAEC Not Detected (NOT DETECT); Enteropathogenic E. coli-EPEC Not Detected (NOT DETECT); Enterotoxigenic E. coli-ETEC Not Detected (NOT DETECT); Salmonella Sp Not Detected (NOT DETECT); Shiga Toxin-prod E. coli-STEC Not Detected (NOT DETECT); Vibrio Sp Not Detected (NOT DETECT)
[2024-09-22 18:27] LABS: Shigella/Enteroin E. coli-EIEC Not Detected (NOT DETECT)
[2024-09-22 18:51] VITALS: BP 186/89
[2024-09-22 18:53] VITALS: BP 195/98
[2024-09-22 20:20] LABS: Hematocrit 46.3 % (33.0-51.0); Hemoglobin 14.6 g/dL (11.5-16.0)
[2024-09-23 03:02] VITALS: BP 169/96
--- NOTE | 2024-09-23 04:13 | NUR ---
SHIFT SUMMARY PT WAS ADMITTED FROM THE ER AT 1845. PT ALERT ORIENTED ABLE TO VERBALIZE NEEDS GETS UP AD DANDRE IN ROOM AND AMBULATES TO THE BATHROOM. FULL ASSESSMENT WAS DONE WITH SLIGHT REDNESS NOTED TO UNDER BILATERAL ARMS. WE DID HER MED REC. HER IV WAS INFILTRATED SO SHE HAD A POWER GLIDE PUT INTO HER LT UPPER ARM. PT TOLERATED THE PROCEDURE WELL. SHE WAS STARTED ON NS AT 75. HER COLOSTOMY BAG IS INTACTY WITH SOME DARK RED BLOOD INSIDE THE BAG WITH CLOTS WITH NO STOOL. CALLED DR. BARRON ANSWERING MACHINE AND INFORMED THEM OF THE CONSULT. SHE WAS SET UP WITH HER BIPAP WITH HER O2 GOING INTO IT. NO C/O PAIN. ABD IS DISTENDED DUE TO HERNIA. SHES A SMOKER AND HAS A NOCOTINE PATCH ON. BP REMAINS ELEVATED IN THE 190'S. SHE REMAINS ON CLONIDINE AND WAS GIVEN IV HYDRALAZINE. SHE REFUSES TO USE THE CONTINUOUS PULSE O2 AND HAS SIGNED THE REFUSAL. RESTING IN BED AT THIS TIME WITH CALL LIGHT IN REACH
[2024-09-23 05:17] LABS: Hematocrit 42.1 % (33.0-51.0); Hemoglobin 13.4 g/dL (11.5-16.0); Mean Corpuscular HGB Conc 31.8 g/dL (31.5-36.5); Mean Corpuscular Volume 86 fL (80-100); NRBC ABSOLUTE 0.00 K/mm3 (0.00-0.02); NRBC Auto 0.0 /100 WBC (0.0-0.2); Platelet Count 238 K/mm3 (150-400); RDW Coefficient Variation 13.4 % (11.7-14.2); RDW Standard Deviation 42.5 fL (35.1-46.3)
[2024-09-23 05:40] LABS: Anion Gap 7.0 mmol/L (3-11); Blood Urea Nitrogen 6.0 mg/dL (8-24); CO2, Blood 31.0 mmol/L (21-32); Calcium, Blood 8.8 mg/dL (8.5-10.1); Chloride, Blood 105.0 mmol/L (98-108); Creatinine, Blood 0.53 mg/dL (0.40-1.00); Glucose, Blood 166.0 mg/dL (70-99); Potassium, Blood 3.7 mmol/L (3.5-5.5); Sodium, Blood 139.0 mmol/L (136-145)
[2024-09-23 07:16] VITALS: BP 127/73
[2024-09-23] MEDS ORDERED: Peg/Electrolytes 4,000 ML BTL PO ONE ×2 (11:00→20:00)
[2024-09-23 16:00] VITALS: BP 194/98
[2024-09-23 19:43] VITALS: BP 178/95
--- NOTE | 2024-09-23 19:51 | NUR ---
SHIFT SUMMARY AOX4. MEDICATION COMPLIANT. DECLINED INSULIN X 2 THIS SHIFT. SCHEDULED FOR EGD/COLINOSCOPY TODAY. CONSUMED PREP SOLUTION, BUT NOT ADEQUATELY CLEAR FOR PROCEDURE. RESCHEDULED FOR TOMORROW. BOWEL PREP TO CONTINUE NEXT SHIFT. BED IN LOW POSITION AND CALL LIGHT IS WITHIN REACH
[2024-09-24 04:33] VITALS: BP 161/98
[2024-09-24 04:47] LABS: BASOPHILS ABSOLUTE AUTO 0.05 K/mm3 (0.00-0.23); BASOPHILS PERCENT AUTO 1 % (0-2); EOSINOPHILS ABSOLUTE AUTO 0.14 K/mm3 (0.00-0.68); EOSINOPHILS PERCENT AUTO 2 % (0-6); Hematocrit 42.3 % (33.0-51.0); Hemoglobin 13.7 g/dL (11.5-16.0); IMMATURE GRAN ABSOLUTE AUTO 0.02 K/mm3 (0.00-0.10); IMMATURE GRAN PERCENT AUTO 0 % (0-1); LYMPHOCYTES ABSOLUTE AUTO 1.95 K/mm3 (0.84-5.20); LYMPHOCYTES PERCENT AUTO 23 % (21-46); MONOCYTES ABSOLUTE AUTO 0.52 K/mm3 (0.16-1.47); MONOCYTES PERCENT AUTO 6 % (4-13); Mean Corpuscular HGB Conc 32.4 g/dL (31.5-36.5); Mean Corpuscular Volume 87 fL (80-100); NEUTROPHILS ABSOLUTE AUTO 5.70 K/mm3 (1.96-9.15); NEUTROPHILS PERCENT AUTO 68 % (41-73); NRBC ABSOLUTE 0.00 K/mm3 (0.00-0.02); NRBC Auto 0.0 /100 WBC (0.0-0.2); Platelet Count 242 K/mm3 (150-400); RDW Coefficient Variation 13.5 % (11.7-14.2); RDW Standard Deviation 43.4 fL (35.1-46.3)
--- NOTE | 2024-09-24 05:04 | NUR ---
SHIFT SUMMARY PT ADMITTED FOR GI BLEED. A&OX4. ABLE TO MAKE ALL NEEDS KNOWN. FINISHED GOLYTELY PRIOR TO 399. NPO SINCE 399. OSTOMY CONTINUES TO PRODUCE LIGHT YELLOW LIQUID STOOL. PLAN IS FOR COLONOSCOPY TODAY THIS AM. PT REMAINS INDEPENDENT IN ROOM. PT CURRENTLY RESTING IN BED AT LOWEST POSITION, WITH RAILS X 2 AND CALL LIGHT WITHIN REACH.
[2024-09-24 05:20] LABS: Alanine Aminotransfer (ALT/SGP 19.0 U/L (12-78); Albumin, Blood 2.8 g/dL (3.4-5.0); Albumin/Globulin Ratio 0.8 (0.8-1.8); Anion Gap 3.0 mmol/L (3-11); Aspartate Aminotrans (AST/SGOT 28.0 U/L (12-37); Bilirubin, Total 0.5 mg/dL (0.1-1.0); Blood Urea Nitrogen 5.0 mg/dL (8-24); CO2, Blood 34.0 mmol/L (21-32); Calcium, Blood 8.9 mg/dL (8.5-10.1); Chloride, Blood 105.0 mmol/L (98-108); Creatinine, Blood 0.51 mg/dL (0.40-1.00); Globulin, Blood 3.7 g/dL (2.2-4.0); Glucose, Blood 130.0 mg/dL (70-99); Potassium, Blood 4.4 mmol/L (3.5-5.5); Sodium, Blood 138.0 mmol/L (136-145); Total Protein, Blood 6.5 g/dL (6.4-8.2)
[2024-09-24 07:34] VITALS: BP 166/83
[2024-09-24 07:55] VITALS: BP 156/95
[2024-09-24] MEDS ORDERED: FentaNYL Citrate 50 MCG/ML 2 ML Injection ONE (08:09)
[2024-09-24] MEDS ORDERED: Midazolam HCl 1MG / ML 2ML Vial ONE (08:10)
--- NOTE | 2024-09-24 08:41 | NUR ---
09/24/24 0841 Maurizio Bianchi History, Chart, Medications and Allergies reviewed before start of procedure. MONITOR INTACT WITH CONTINUOUS PULSE OXIMETRY, CONTINUOUS END TITAL CO2, 3-LEAD EKG AND INTERMITTENT BLOOD PRESSURE. 3-LEAD EKG REVIEWED WITH PHYSICIAN PRIOR TO START OF PROCEDURE. O2 VIA POM INTACT THROUGHOUT SEDATION/PROCEDURE.
[2024-09-24 09:27] VITALS: BP 164/77
[2024-09-24 10:18] VITALS: BP 144/68
--- NOTE | 2024-09-24 12:24 | NUR ---
PT LEFT FOR ENDO/COLO PROCEDURE 07, AMBULATED FROM BED TO [facility]. RETURNED 0915, SITTING UPRIGHT IN BED, COMPLETELY AWAKE STATES "IM READY TO EAT". PT'S VS STABLE, WILL BRYNN
[2024-09-24] MEDS ORDERED: PANT40 PO (13:54)
[2024-09-24] MEDS ORDERED: AMLO10 PO (13:54)
--- NOTE | 2024-09-24 15:46 | NUR ---
PT DISCHARGED WITH INSTRUCTIONS, WHEELCHAIR OUT TO PRIVATE CAR, PT WILL DRIVE HERSELF HOME. PT STEADY ON FEET. RUST/ORANGE SLIGHT DRAINAGE FROM COLOSTOMY TODAY. PT TOERATING FOOD AND FLUIDS. STAEDY IN FEET.
== END 2024-09-24 14:49 | disposition home or self-care (01) ==
LOC: ER 12:57 → MEDS 12:58 → ERHOLD 12:58 → MEDS 18:45
PROVIDERS: Emergency Medicine; Nurse Practitioner Acute Care; Surgery; ADMIT Internal Medicine
PROC: 0DB68ZX Excision of Stomach, Via Natural or Artificial Opening Endoscopic, Diagnostic (ICD-10-PCS; principal; 2024-09-24 08:00)
PROC: 0DBC8ZX Excision of Ileocecal Valve, Via Natural or Artificial Opening Endoscopic, Diagnostic (ICD-10-PCS; principal; 2024-09-24 08:00)
PROC: 0DB98ZX Excision of Duodenum, Via Natural or Artificial Opening Endoscopic, Diagnostic (ICD-10-PCS; principal; 2024-09-24 08:00)
DX: K92.1 Melena (principal); K57.31 Diverticulosis of large intestine without perforation or abscess with bleeding; K51.40 Inflammatory polyps of colon without complications; K29.81 Duodenitis with bleeding; K43.5 Parastomal hernia without obstruction or gangrene; J44.9 Chronic obstructive pulmonary disease, unspecified; F17.210 Nicotine dependence, cigarettes, uncomplicated; G47.33 Obstructive sleep apnea (adult) (pediatric); I10 Essential (primary) hypertension; E11.9 Type 2 diabetes mellitus without complications; E66.01 Morbid (severe) obesity due to excess calories; Z68.41 Body mass index [BMI] 40.0-44.9, adult; Z93.3 Colostomy status; Z79.01 Long term (current) use of anticoagulants; Z79.899 Other long term (current) drug therapy; Z88.8 Allergy status to other drugs, medicaments and biological substances
CPT/HCPCS: 36415; 74177; 80048; 80053; 82947; 85014; 85018; 85025; 85027; 85610; 85730; 87507; 88305; 88342; 94760; 96374; 99285-25; A9270; C1751; G0378; J0360; J2003; J2250; J2704; J3010; J7030; J7120; Q9967